=== PATIENT | female | born 1940 | race Caucasian/White ===

== ENCOUNTER → 2016-08-26 | Outpatient (CLI) | payer OTHER, MEDICARE ==
[~2016-08-26] MED LIST: ALBINS/ INH; ALBUAER2 INH; AMLO2.5T PO; AMPH1TAB58 PO; ASPI81TA21 PO; ATEN25TA PO; AZIT250T PO; CALCTAB23 PO; CETI10TA84 PO; CETI5TAB5 PO; CHOL1000 PO; FEXO1TAB49 PO; LISI40TA PO; LVNIS30 SQ; MULT-506 PO; OXYC-292 PO; OXYC-57 PO; RXC5 PO; TRAM-10 PO
== END | disposition home or self-care (01) ==
LOC: C.RDSM 10:14
PROVIDERS: ATTEND Physical Medicine & Rehabilitation Sports Medicine
DX: M17.12 Unilateral primary osteoarthritis, left knee (principal); J18.9 Pneumonia, unspecified organism; I77.810 Thoracic aortic ectasia

== ENCOUNTER → 2016-09-12 | Outpatient (CLI) | payer OTHER, MEDICARE ==
[~2016-09-12] MED LIST changes: -AZIT250T PO; -FEXO1TAB49 PO
--- NOTE | 2016-09-12 11:29 | DIAGNOSTIC IMAGING REPORT ---
CHEST CT WITHOUT CONTRAST CT DOSE: 239.66 mGy.cm HISTORY: Follow-up lung opacity. TECHNIQUE: Multiaxial CT images of the chest were performed without contrast. COMPARISON: Chest CTA 05/11/2016. FINDINGS: The central airways are patent. No pleural effusions. No pneumothorax. Small fat-containing right-sided Bochdalek hernia. Punctate calcified granuloma within the lingula. A few small tree-in-bud nodular opacities and 2 adjacent nodular densities within the left lower lobe have slightly progressed. Dominant nodular density measures 6 mm on image 196. These demonstrate a groundglass halo and favor mild infectious/inflammatory change in conjunction with the tree-in-bud nodules. A similar-appearing 2 mm nodular density within the right lower lobe on image 198. A few tiny subpleural nodular density of the right lung apex also remain stable. These are likely benign. No fractures within the visualized osseous structures. Stable 1 cm nodule within the left thyroid lobe. No mediastinal or hilar lymphadenopathy. A few small gallstones are present. The visualized liver, spleen, and adrenal glands are unremarkable. Postoperative changes suggesting prior Tessie fundoplication. Stable aneurysmal dilatation of the ascending thoracic aorta measuring up to 4.9 cm. IMPRESSION: 1. A few subcentimeter nodular densities within the left lower lobe have progressed including a few tree-in-bud nodular densities. These favor mild inflammatory/infectious change. However, an additional [address] follow-up is recommended to ensure resolution. 2. Stable aneurysmal dilatation of the ascending thoracic aorta which measures up to 4.9 cm. 3. A 1 cm left thyroid nodule. 4. Additional changes as described above. Electronically signed by: Rubin Ahn M.D. 09/12/2016 11:28 AM Dictated Date/Time: 09/12/2016 11:18 AM
== END | disposition home or self-care (01) ==
LOC: C.CTS 10:47
PROVIDERS: ATTEND Internal Medicine Pulmonary Disease
DX: R91.8 Other nonspecific abnormal finding of lung field (principal); I71.2 Thoracic aortic aneurysm, without rupture; E04.1 Nontoxic single thyroid nodule

== ENCOUNTER 2016-09-27 05:06 | Inpatient (IN) | payer OTHER, MEDICARE ==
[2016-09-02 15:47] VITALS: BMI 28.0
--- NOTE | 2016-09-02 16:08 | PAT Medication Instructions ---
Service Date Sep 02, 2016. Current Home Medication List Albuterol (Ventolin Hfa), 1-2 PUFFS INH Q4H PRN for Shortness of Breath Amlodipine (Norvasc), 2.5 MG PO QAM Amphetamine-Dextroamphetamine 5MG (Adderall 5MG), 7.5 MG PO QAM Aspirin Enteric Coated (Ecotrin Or Generic), 81 MG PO QAM Atenolol (Tenormin), 25 MG PO QAM Calcium Carbonate-Vitamin D (Calcium 600-D), 1 TABLET PO BID Cholecalciferol (Vitamin D3), Unknown Dose PO QAM Lisinopril (Zestril), 40 MG PO QAM Multivitamin (Multivitamin), 1 TABLET PO QAM Medication Instructions For Your Scheduled Surgery - Hold the following medications the morning of surgery: Cholecalciferol (Vitamin D3), Unknown Dose PO QAM Lisinopril (Zestril), 40 MG PO QAM Multivitamin (Multivitamin), 1 TABLET PO QAM Calcium Carbonate-Vitamin D (Calcium 600-D), 1 TABLET PO BID - Take the following medications the morning of surgery with a sip of water OTHERWISE NOTHING TO EAT OR DRINK AFTER MIDNIGHT: Atenolol (Tenormin), 25 MG PO QAM Albuterol (Ventolin Hfa), 1-2 PUFFS INH Q4H PRN for Shortness of Breath (may take if needed; BRING TO HOSPITAL) Nebulizer treatment (use if needed) Aspirin Enteric Coated (Ecotrin Or Generic), 81 MG PO QAM Amlodipine (Norvasc), 2.5 MG PO QAM - Take the following medications as scheduled the night before surgery: Calcium Carbonate-Vitamin D (Calcium 600-D), 1 TABLET PO BID Albuterol (Ventolin Hfa), 1-2 PUFFS INH Q4H PRN for Shortness of Breath Nebulizer treatment If you have any questions please call us at [phone] (Angelika Espinoza PA-C ) or [phone] or [phone]
[2016-09-02 16:30] LABS: BASO % 1.6 %; COMPLETE YES; EOS % 7.4 %; HEMATOCRIT 39.1 % (37-47); LYMPH % 37.5 %; LYMPH ABS # 2.29 K/uL (1.2-3.4); MEAN CELL VOLUME 87.9 fL (80-100); MEAN CORPUSCULAR HEMOGLOBIN 29.7 pg (25-34); MEAN CORPUSCULAR HGB CONC 33.8 g/dl (32-36); MEAN PLATELET VOLUME 9.6 fL (7.4-10.4); MONO % 7.9 %; NEUT % 45.6 %; PLATELET COUNT 275 K/uL (130-400); RED BLOOD COUNT 4.45 M/uL (4.2-5.4); WHITE BLOOD COUNT 6.11 K/uL (4.8-10.8)
[2016-09-02 16:37] LABS: PROTHROMBIN TIME (PATIENT) 10.9 SECONDS (9.0-12.0)
[2016-09-02 16:57] LABS: BUN/CREATININE RATIO 19.3 (10-20); CALCIUM 10.1 mg/dl (8.5-10.1)
[2016-09-02 17:00] LABS: ALB/GLOB RATIO 1.3 (0.9-2)
--- NOTE | 2016-09-05 17:39 | HISTORY & PHYSICAL EXAMINATION ---
DATE OF ADMISSION: 09/27/2016 CHIEF COMPLAINT: Left knee pain. HISTORY OF PRESENT ILLNESS: This 76-year-old female presents to the clinic for preoperative history and physical. The patient states that she has had significant left knee pain since January of 2015. The patient has failed numerous conservative efforts to treat the knee pain with the use of nonsteroidals, viscosupplementation as well as physical therapy. The patient states that she has also been using a knee brace that gives her some slight stability. The patient states that she had a right total knee arthroplasty performed by Dr. Giles in 2009 and states that she is doing excellent in regards to the right knee. The patient would like to proceed with a left total knee arthroplasty at this time. The patient denies any chest pain, shortness of breath, fever, chills, sweats, nausea, vomiting or diarrhea. PAST SURGICAL HISTORY: Tonsillectomy/adenoidectomy, tubal ligation, Tessie fundoplasty, right knee arthroscopy x2, right total knee arthroplasty, and bilateral cataract removal. PAST MEDICAL HISTORY: ADHD, asthma, hypertension, osteoporosis, COPD, obesity and seasonal allergies. FAMILY HISTORY: Father, lung cancer. Mother, breast cancer. ALLERGIES: THE PATIENT HAS MEDICATION ALLERGIES TO MECLIZINE AND SULFA DRUGS. CURRENT MEDICATIONS: Adderall 5 mg oral tablet 1 tab each morning, albuterol, ipratropium MDI 2 puffs inhaled every 4 hours as needed for wheezing, amlodipine 2.5 mg oral tablet 1 tab daily, aspirin 81 mg oral tablet 1 tab daily, atenolol 25 mg oral tablet 1 tab daily, ibuprofen 200 mg oral tablet 2-3 tabs every 6 hours as needed for pain relief, lisinopril 40 mg oral tablet 1 tab daily, multivitamin unknown dosage oral tablet 1 daily, vitamin D3 2000 international units 1 tab daily, Zyrtec 10 mg tablet 1 tab daily as needed for allergy relief. SOCIAL HISTORY: The patient denies a history of tobacco or illicit drug use, states that she consumes approximately 2 alcoholic beverages per week. PHYSICAL EXAMINATION: SKIN: The patient's skin is normal in appearance. No skin lesions or discharge. EYES: Pupils are equal and reactive to light and accommodation. Extraocular movements are intact. EARS: Canals are clear of cerumen. Tympanic membranes are intact bilaterally with no bulging or effusion. NOSE: Turbinates pink and boggy in appearance with no appreciable rhinorrhea. THROAT: Posterior oropharynx is clear without evidence of edema, erythema or exudate. CARDIOVASCULAR: The patient has a regular rate and rhythm with no murmurs or gallops appreciated. LUNGS: Auscultation of lung austin reveals clear breath sounds throughout with no wheezing, rales or rhonchi. ABDOMEN: Mildly obese, nondistended, nontender with normoactive bowel sounds throughout. EXTREMITIES: Left knee, patient is able to extend to 0 degrees and flex to 120 degrees. She has an obvious valgus deformity in the left knee joint. She has crepitation with active and passive range of motion and experiences lateral joint line tenderness upon palpation with the knee placed in a flexed position. The patient's left patella is nonmobile due to arthritic changes within the patellofemoral joint. Otherwise, there is no edema, erythema, ecchymosis, warmth or palpable bony deformity. No varus or valgus laxity. Negative AP drawer sign. Negative Lluvia test. The left calf is soft and supple, nontender to palpation. She experiences no overt knee pain with dorsi or plantar flexion of left foot actively or passively against resistance. The patient is neurovascularly intact in left lower extremity. Her peripheral pulses are palpable and her capillary refill is brisk. All other extremities are normal in appearance with appropriate range of motion and strength. NEUROLOGICAL: Cranial nerves II-XII are intact with no motor or sensory deficit. PSYCHOLOGICAL AND GENERAL: The patient is alert and oriented x3 with proper grooming and hygiene. DIAGNOSIS: Left knee osteoarthritis. PROCEDURE: Left total knee arthroplasty. RADIOGRAPHIC IMAGING: Images of left knee showed lateral joint space narrowing with sclerosis, bone on bone change within the lateral compartment and minimal lateral patellar arthrosis. PLAN: The patient is scheduled to undergo the procedure with Dr. Solo Giles at the [facility] on 09/27/2016. Risks and complications of the surgery such as infection, bleeding, pain, scarring, nerve and blood vessel damage, weakness, wound problems, stiffness, incomplete relief of symptoms, heart attack, stroke, , hardware failure, loosening, wear, fracture, blood clots and embolism were explained to the patient and she understands and agrees. Written consent to perform the procedure was obtained. We will also obtain a preoperative CBC with diff, CMP, PT, INR, PTT, blood type and screen, EKG, chest x-ray and medical clearance from the patient's primary care provider, Dr. Perez. The patient states that she has a walker at home that she will bring with her on the day of surgery. She is advised that she will be provided with a prescription for Lovenox to use postoperatively for DVT prophylaxis for a total of 4 weeks twice daily. She will also use PRINCESS stockings and foot pumps to prevent blood clots and embolism. The patient will be provided with a prescription for PT, OT to receive 3 times weekly for 6 weeks postoperatively. Due to the use of Lovenox, she will not need biweekly PT/INR checks. The patient states she will most likely proceed to [facility] for postoperative rehab for 2 weeks and then do outpatient physical therapy for an additional 4-6 weeks. The patient verbalized understanding of all information provided at today's visit, thanked us for the care she received at our clinic and states that if she has any other questions or concerns that should arise prior to her scheduled surgical date, she will contact the clinic accordingly.
[~2016-09-27] VITALS: Ht 154.9 cm; Wt 65.5 kg
[2016-09-27] VITALS (11 sets, daily range): BP systolic 100–135; BP diastolic 66–89; PULSE 57–88; TEMP 36.5–36.8; O2SAT 92–99; Ht 154.9 cm; Wt 65.5 kg
[~2016-09-27 05:06] MED LIST changes: -ALBINS/ INH; -CETI10TA84 PO; -CETI5TAB5 PO; -LVNIS30 SQ; -OXYC-292 PO; -OXYC-57 PO; -RXC5 PO; -TRAM-10 PO
[2016-09-27] MEDS ORDERED: ALBINS/ INH (05:48)
[2016-09-27] MEDS ORDERED: CETI5TAB5 PO (05:49)
[2016-09-27] MEDS ORDERED: CETI10TA84 PO (05:50)
[2016-09-27] MEDS ORDERED: CeleBREX 200 MG CAP PO SCH (06:00)
[2016-09-27] MEDS ORDERED: BUPIVACAINE LIPOSOME 266 MG, BUPIVACAINE/EPINEPHRINE INJ 50 ML, SODIUM CHLORIDE 0.9% PF... INFIL SCH ×3 (06:00)
[2016-09-27] MEDS ORDERED: ACETAMINOPHEN 500 MG TAB PO SCH (06:00)
[2016-09-27] MEDS ORDERED: LACTATED RINGER'S 1000ML 1,000 ML IV SCH ×2 (06:00→14:23)
[2016-09-27] MEDS ORDERED: DEXAMETHASONE 4 MG TAB PO SCH (06:00)
[2016-09-27] MEDS ORDERED: TRAMADOL HCL 50 MG TAB PO SCH (06:00)
[2016-09-27] MEDS ORDERED: OXYCODONE HCL 10 MG TABCR (OXYCONTIN) PO SCH (06:00)
[2016-09-27] MEDS ORDERED: CEFAZOLIN 2000 MG/60 ML D5W 60 ML IV SCH (06:00)
[2016-09-27] MEDS ORDERED: CLONIDINE HCL 0.1 MG/24 HR TRANSDERM SYS TD SCH (06:00)
[2016-09-27] MEDS ORDERED: LACTATED RINGER'S 1000ML IV SCH (06:00)
[2016-09-27] MEDS ORDERED: GABAPENTIN 300 MG CAP PO SCH (06:00)
[2016-09-27] MEDS ORDERED: BUPIVACAINE 0.5 % 5 MG/1 ML PF 10ML VIAL ONE (06:13)
[2016-09-27] MEDS ORDERED: BUPIVACAINE 0.25% 30 ML VIAL ONE (06:14)
--- NOTE | 2016-09-27 06:29 | History & Physical Bridge Note ---
H&P Re-Evaluation Bridge Note: I have examined the patient, reviewed the History & Physical and in the interval since the performance of the History & Physical I have noted the following changes of clinical significance: No changes noted
[2016-09-27] MEDS: TRANEXAMIC ACID INJ 1,000 MG in SODIUM CHLORIDE 0.9% 100ML 100 ML IV SCH ×2 (06:30→11:16)
[2016-09-27] MEDS ORDERED: SODIUM CHL BACTERIOSTATIC 0.9% INJ 30 ML VIAL ONE (06:36)
[2016-09-27] MEDS ORDERED: BACITRACIN 50000 UNIT VIAL ONE ×2 (06:36→07:05)
[2016-09-27] MEDS ORDERED: BUPIVACAINE/EPINEPHRINE 0.25% 1:200,000 30 ML VIAL ONE (06:36)
[2016-09-27] MEDS ORDERED: BUPIVACAINE LIPOSOME 1/3% 266 MG/20 ML VIAL INFIL ONE (06:37)
[2016-09-27] MEDS ORDERED: FENTANYL CITRATE INJ 50 MCG/1 ML 2 ML VIAL ONE (06:45)
[2016-09-27] MEDS ORDERED: KETAMINE HCL INJ 50 MG/ML 10 ML VIAL ONE (06:45)
[2016-09-27] MEDS ORDERED: MIDAZOLAM HCL 1 MG/ML 2ML VIAL ONE (06:48)
[2016-09-27] MEDS ORDERED: SODIUM CHLORIDE 0.9% PF 50 ML VIAL ONE (07:10)
[2016-09-27] MEDS ORDERED: EpHEDrine SULFATE INJ 50 MG/ML AMP IV PRN (08:15)
[2016-09-27] MEDS ORDERED: ONDANSETRON INJ 2 MG/ML 2 ML VIAL IV PRN ×2 (08:15→14:30)
[2016-09-27] MEDS ORDERED: FENTANYL CITRATE INJ 50 MCG/1 ML 2 ML VIAL IV PRN (08:15)
[2016-09-27] MEDS ORDERED: ATROPINE SULFATE 0.1 MG/ML 5ML SYR IV PRN (08:15)
[2016-09-27] MEDS ORDERED: PROPOFOL IV EMULSION 10 MG/ML 20 ML VIAL IV ONE (08:55)
[2016-09-27] MEDS ORDERED: EpHEDrine SULFATE 50MG/5ML SYR ONE (08:55)
[2016-09-27] MEDS ORDERED: LIDOCAINE HCL 2% 2 ML VIAL (20MG/ML) ONE (08:55)
--- NOTE | 2016-09-27 09:56 | [facility] Post Operative Brief Note ---
Immediate Operative Summary Operative Date Sep 27, 2016. Pre-Operative Diagnosis Left Knee Osteoarthritis Post-Operative Diagnosis Left Knee Osteoarthritis Procedure(s) Performed Left Total Knee Arthroplasty Surgeon Dr. Solo Giles Direct Mail Manager Surgeon(s) elieser Taylor ms3 Estimated Blood Loss 20ML Findings lateral and patellar OA Specimens A. Left Knee Bone and Tissue Drains 0 Anesthesia spinal with sedation Complication(s) None Disposition Recovery Room / PACU
--- NOTE | 2016-09-27 09:56 | Medical Student: [facility] ---
Immediate Operative Summary Operative Date Sep 27, 2016. Pre-Operative Diagnosis Left knee osteoarthritis Post-Operative Diagnosis Left knee osteoarthritis Procedure(s) Performed Left total knee arthroplasty Surgeon Dr. Giles Stoneworking Sander Surgeon(s) Dr. Teresa Estimated Blood Loss 20cc Findings Osteoarthritic changes of the knee Specimens None Complication(s) None Disposition Recovery Room / PACU
[2016-09-27] MEDS ORDERED: HYDROCODONE/ACETAMOPHEN 5/325MG TAB PO PRN ×2 (10:00→14:30)
--- NOTE | 2016-09-27 10:06 | [facility] Post Operative Brief Note ---
Immediate Operative Summary Operative Date Sep 27, 2016. Pre-Operative Diagnosis Left Knee Osteoarthritis Post-Operative Diagnosis Left Knee Osteoarthritis Procedure(s) Performed Left Total Knee Arthroplasty Surgeon Dr. Solo Giles Marine Rigger Surgeon(s) elieser Taylor ms3 Estimated Blood Loss 20ML Specimens A. Left Knee Bone and Tissue Complication(s) None Disposition PCU
--- NOTE | 2016-09-27 10:45 | Anesthesiology Progress Note ---
Anesthesia Post Op Note Date & Time Sep 27, 2016 at 10:45 Vital Signs Pain Intensity: 0 Vital Signs Past 12 Hours Date Time Temp Pulse Resp B/P Pulse Ox O2 Delivery O2 Flow Rate FiO2 09/27/16 10:30 58 15 125/77 96 Nasal Cannula 2 09/27/16 10:15 36.1 59 16 126/77 98 Nasal Cannula 2 09/27/16 10:05 72 21 133/80 100 Nasal Cannula 2 09/27/16 09:55 62 23 114/79 99 Nasal Cannula 2 09/27/16 09:45 36.7 69 16 116/80 100 Mask 10 09/27/16 06:00 99 Room Air 09/27/16 05:52 36.6 67 16 135/89 Notes Mental Status: alert / awake / arousable, participated in evaluation Pt Amnestic to Procedure: Yes Nausea / Vomiting: adequately controlled Pain: adequately controlled Airway Patency, RR, SpO2: stable & adequate BP & HR: stable & adequate Hydration State: stable & adequate Neuraxial Anesthesia: was administered, sensory block is resolving Anesthetic Complications: no major complications apparent
--- NOTE | 2016-09-27 10:50 | OPERATIVE REPORT ---
DATE OF OPERATION: 09/27/2016 PREOPERATIVE DIAGNOSIS: Left knee osteoarthritis. POSTOPERATIVE DIAGNOSIS: Same. PROCEDURE: Cemented left total knee arthroplasty. SURGEON: Dr. Giles. REFRIGERATION INSTALLER: Carlton Teresa. No resident or PA available. SECOND REFRIGERATION INSTALLER: Royer, third year medical student. ANESTHESIA: Spinal with sedation and peripheral nerve block. INDICATION FOR PROCEDURE: The patient is a 76-year-old female with longstanding left lateral knee pain, valgus deformity, and lateral compartment arthritis, refractory to nonsurgical methods of management. She has elected to proceed with operative intervention. She had successful contralateral knee replacement 7 years ago. Treatment options, risks and benefits were discussed. PROCEDURE IN DETAIL: Informed consent was obtained. The patient identified as Sarah Sargent. She identified the operative site as the left knee, I marked it with my initials. A preop surgical timeout was performed. A preop dose of IV antibiotics was given. She was taken to the operating room, positioned supine on the operating room table. No Ayala was inserted. A tourniquet was applied to the left thigh. A padded bump was used for flexing the knee. The entire left lower extremity was prepped and draped in usual sterile fashion. She had a 2 mm benign-appearing split in the skin at the distal extent of her toe with a scant amount of old blood. This was scrubbed with chlorhexidine and found not to have any significant depth or evidence of infection. The exam under anesthesia showed full extension and flexion to 140 degrees. She had intact stability and full extension, trace LCL laxity in mid position. The left leg was prepped and draped in usual sterile fashion. DVT prophylaxis intraoperatively with foot pumps, postoperatively with early mobility and Lovenox. She received a preop dose of IV antibiotics. She was positioned supine on the OR table. She had a preoperative medical clearance. Bony prominences were inspected and padded. The limb was exsanguinated with the Esmarch, tourniquet inflated to 225 mmHg. A midline incision attempting to match the length of the contralateral side was made, approximately 20 cm in length. The skin was incised followed by a medial parapatellar arthrotomy and minimal medial release. Release of the soft tissue reflection in the lateral gutter, removal of peripheral osteophytes, and resection of anterior soft tissue from the anterior aspect of the distal femur. There were grade 3 and 4 changes on the patella with marginal osteophytes. The medial side of the knee looked fairly normal except for some degeneration in the medial meniscus. The trochlea looked well. There were [id number] grade 4 changes weightbearing area lateral femoral condyle with a deficient lateral meniscus. The cruciates and menisci were excised, and the tibia was subluxated. A maritime pilot hole was drilled into the proximal femur just in front of the lateral tibial spine. The alignment marleny was inserted and the 0-degree cutting block was applied and aligned to take 6 mm off the medial side, corresponding to 8 on the lateral side which matched our preoperative templating. The extramedullary alignment marleny was utilized, and this showed good slope and bisection of the ankle joint and intersection with the second ray. The alignment was good and the cut was made and sized to a 2.5. A maritime pilot hole was drilled into the distal femur, just slightly more medial than is typical, based upon preoperative templating. I had measured her to a 7-degree cut, but because of some valgus metaphyseal bow, I decreased this to 5 degrees. The guide was set to resect 12 mm off the distal femur. The guide was oriented, pinned into place, double checked, and the cut was made. The patient had a rectangular extension gap, 10 mm in thickness. Luning's line and the transepicondylar axis were marked out. The distal femoral sizing block was applied, sized to a 2.5, and the appropriate external rotation drill holes were made which matched the epicondylar axis. The size 2.5 anterior down cutting block was applied and the cuts were made. The patient had a rectangular flexion gap. There were no osteophytes or loose bodies in the back of the knee. The box cutting guide was applied, lateralized, and the box was cut. Prior to that, the flexion gap was assessed with a 10 block, it fit appropriately medially with about 2 mm of lateral laxity at 90. Given the overall balance of the knee and this minimal laxity, I accepted this as within tolerance and proceeded. The tibia was exposed. The 2.5 tray was aligned, pinned into place. The keel was drilled and punched, and the trial polyethylene was inserted which showed excellent stability throughout and a trace bit of laxity laterally at 90 degrees flexion. The knee was neutrally aligned and fully extended. The patella was measured to be 20 mm in thickness. The guide was set to preserve 13 mm of bone. The cut was made and the residual patellar thickness was 12. A 35 mm oval dome patella was selected, appropriately aligned, and the drill holes for the lugs were made. Patellar tracking was off at this point with the tourniquet up. The trial components were removed from the knee. The back of the knee was injected with Exparel. The canals were plugged. The bony surfaces were meticulously prepared. Throughout the procedure, irrigation was performed to keep the soft tissues moist. Two bags of Simplex P cement were mixed, and while in the doughy state, the femur, tibia and patella were cemented in place with a trial spacer. Once the cement had hardened, the tourniquet was let down after 83 minutes of inflation. There was minimal bleeding. Hemostasis was achieved with electrocautery, and the patient received a preop dose of TXA and will receive a postoperative dose as well. Composite patellar thickness was 20.5 mm. [place] assisted flexion with the extensor mechanism closed was 125 degrees, perhaps even 130. Stability was again assessed and found to be the same as prior. I did not think that a 12.5 block would fit in extension, would likely cause her to have a slight flexion contracture and overall make the knee excessively tight. Once the tourniquet was down, the patellar tracking was fine with the no hands technique. The liftoff and pull out test was absent. The back of the knee was inspected for cement, irrigated, and the final polyethylene was inserted. Irrigation was performed followed by the remainder of the Exparel. The extensor mechanism was closed below the equator of the patella with running and interrupted #1 Vicryl and above the equator with interrupted #2 FiberWire. The skin was closed in layers with 0 and 2-0 Vicryl and sarah on the skin and a full length Ronen wrap with a soft sterile dressing, Xeroform, 4 x 4's, ABD. The patient was awakened from anesthesia without difficulty, taken to the recovery room in stable condition. There were no complications. The resected bone was sent for specimen. Counts were correct at the end of case. Blood loss was approximately 20 mL. The patient will be rehabilitated according to the total knee rehab protocol and she will hopefully be able to get to [facility]. Components inserted were the [employer] rotating platform knee, a size 2.5 left femur, 2.5 mobile bearing keeled tibial tray, a 10 mm thick rotating platform polyethylene insert, and a 35 mm 3-peg oval dome patella. I attest to the content of the Intraoperative Record and any orders documented therein. Any exceptio ns are noted below.
--- NOTE | 2016-09-27 11:08 | DIAGNOSTIC IMAGING REPORT ---
LEFT KNEE 2 VIEWS History: Left total knee arthroplasty. Degenerative arthritis. Postop. FINDINGS: The patient is status post a left total knee arthroplasty. The hardware is intact. No fracture or dislocation. Skin sarah are in place. IMPRESSION: Left total knee arthroplasty. No evidence for hardware complication. Electronically signed by: Rubin Ahn M.D. 09/27/2016 11:06 AM Dictated Date/Time: 09/27/2016 11:06 AM
[2016-09-27] MEDS: CHECK CLONIDINE PATCH PLACEMENT SCH ×4 (11:15→23:42)
[2016-09-27] MEDS: SODIUM CHLORIDE 0.9% 1000ML 1,000 ML IV SCH ×2 (11:27→20:19)
[2016-09-27] MEDS: ONDANSETRON INJ 2 MG/ML 2 ML VIAL IV PRN ×2 (11:27→17:40)
[2016-09-27] MEDS ORDERED: ACETAMINOPHEN 500 MG TAB PO PRN (13:15)
--- NOTE | 2016-09-27 13:44 | ORTHOPEDICS PROGRESS NOTE ---
DATE: 09/27/2016 DATE: 09/27/2016. SUBJECTIVE: Postop check. Resting comfortably in bed eating. No problems reported. Pain well controlled. Afebrile. Vital signs are stable. X-ray showed good positioning without evidence of complication. No fracture. A 1+ dorsalis pedis, 5/5 ankle and toe plantarflexion, dorsiflexion. Sensation normal. Dressing clean and dry. PROCEDURE: Left total knee replacement. PLAN: Continue routine postoperative orthopedic care. I discussed with her my findings related to the surgery. She will use the knee immobilizer for about 24 hours when she is up and about. We discussed her postoperative care. She will be started on Lovenox in the morning.
[2016-09-27] MEDS ORDERED: MoRPHine SULFATE 2 MG/ML CARP IV PRN (14:30)
[2016-09-27] MEDS ORDERED: ONDANSETRON INJ 2 MG/ML 2 ML VIAL IV ONE (14:45)
[2016-09-27] MEDS ORDERED: NURSING VERBAL MED ORDER ONE (14:45)
[2016-09-27] MEDS: OXYCODONE HCL IR 5 MG TAB (IMMEDIATE RELEASE) PO PRN (15:22)
[2016-09-27] MEDS ORDERED: TRANEXAMIC ACID INJ 1,000 MG in SODIUM CHLORIDE 0.9% 100ML 100 ML IV SCH (16:00)
[2016-09-27] MEDS: CEFAZOLIN IV 1,000 MG in DEXTROSE 5% 50ML 50 ML IV SCH ×2 (16:03→23:42)
[2016-09-27] MEDS: MoRPHine SULFATE 2 MG/ML CARP IV PRN (16:03)
[2016-09-27] MEDS: KETOROLAC TROMETHAMINE 15 MG/ML VIAL IV. PRN (17:42)
--- NOTE | 2016-09-27 17:58 | Medical Consult ---
Consultation Date of Consultation: Sep 27, 2016. Attending Physician: Solo Giles M.D. Reason for Consultation: post-op medical management History of Present Illness Ms. Sargent is a 76 yo F who is admitted post left-knee arthroplasty. 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 She denies ever being diagnosed with diabetes. She was previously "borderline" diabetic with A1C of 6.1 and started exercising and modifying her diet and her last 2 A1Cs have been 5.6. She follows with Dr. Perez (PCP). She is currently feeling nauseated and c/o left knee pain. She otherwise has no chest pain, no sob, no abd pain, no urinary symptoms. Past Medical/Surgical History PMHx HTN, COPD, asthma, thoracic aortic aneurysm, seasonal allergies, osteoarthritis b/l knees PSH: - R TKA, tonsillectomy, tubal ligation, cataracts b/l, R meniscal repair, Tessie procedure Family History Cancer FHx: possibly heart disease - Alzheimer's disease in both sets of grandparents Social Hx: - h/o heavy smoking since teenager, quit in 1981 - weekly drinking - lives by herself with a cat and 2 snakes Allergies: Sulfa ( rash) Meclizine ("loopy") Social History Smoking Status: Former Smoker Drug Use: none Marital Status: Housing Status: lives with family Occupation Status: retired Allergies Coded Allergies: Sulfa Antibiotics (Verified Allergy, Mild, RASH, 09/27/16) Meclizine (Verified Adverse Reaction, Mild, DROWSY, 09/27/16) Home Medications Reported Home Medications Medications Dose Route/Sig Max Daily Dose Days Date Category Zyrtec (Cetirizine HCl) 10 Mg Tab 10 Mg PO DAILY 09/27/16 Reported Proventil 0.083% 2.5MG/3ML (Albuterol Sulf) 2.5 Mg/3 Ml Nebu 2.5 Mg INH QID 09/27/16 Reported Vitamin D3 (Cholecalciferol) Unknown Strength Tab Unknown Dose PO QAM 90 05/11/16 Reported Adderall 5MG (Amphetamine-Dextroamphetamine 5MG) 1 Tab Tab 7.5 Mg PO QAM 05/11/16 Reported Ventolin Hfa (Albuterol) Aers 1-2 Puffs INH Q4H PRN 04/15/14 Reported Calcium 600-D (Calcium Carbonate-Vitamin D) 1 Tab Tab 1 Tablet PO DAILY 02/25/13 Reported Ecotrin Or Generic (Aspirin) 81 Mg Tab 81 Mg PO QAM 09/06/12 Reported Norvasc (Amlodipine Besylate) 2.5 Mg Tab 2.5 Mg PO QAM 09/06/12 Reported Tenormin (Atenolol) 25 Mg Tab 25 Mg PO QAM 09/06/12 Reported Multivitamin (Multivitamins) Tab 1 Tablet PO QAM 07/29/09 Reported Zestril (Lisinopril) 40 Mg Tab 40 Mg PO QAM 07/29/09 Reported Current Inpatient Medications Current Inpatient Medications Medications (Trade) Dose Ordered Sig/Dominique Route Start Time Stop Time Status Last Admin Dose Admin Cefazolin Sodium (Ancef 2000mg/60 ml D5W) 60 ml @ 100 mls/hr PREOP IV 09/27/16 06:00 09/27/16 18:00 09/27/16 07:09 100 MLS/HR Acetaminophen (Tylenol Tab) 1,000 mg PREOP PO 09/27/16 06:00 09/27/16 18:00 09/27/16 06:33 1,000 MG Dexamethasone 8 mg 8 mg PREOP PO 09/27/16 06:00 09/27/16 18:00 09/27/16 06:32 8 MG Bupivacaine Liposome/ Bupivacaine HCl/ Epinephrine Bitart/Sodium Chloride/Syringe (Exparel/ BUPIVACAINE/ EPINEPHRINE 0.25% Inj/Sodium Chloride 0.9% Pf Inj/Syringe) 100 ml @ 0 mls/hr 06 INFIL 09/27/16 06:00 09/27/16 18:00 09/27/16 08:28 100 MLS/HR Gabapentin (Neurontin Cap) 300 mg PREOP PO 09/27/16 06:00 09/27/16 18:00 09/27/16 06:33 300 MG Clonidine HCl (Ittprlws-Xqs-1 0.1mg/24hr Patch) 1 patch PREOP TD 09/27/16 06:00 09/27/16 18:00 09/27/16 06:34 1 PATCH Miscellaneous 1 ea 1 ea Q72H N/A 09/30/16 06:00 09/30/16 06:01 Tranexamic Acid/ Sodium Chloride (Cyklokapron Inj/ Nss 100ml) 110 ml @ 660 mls/hr TODAY@06,0630 IV 09/27/16 06:00 09/27/16 18:00 09/27/16 06:30 660 MLS/HR Tramadol HCl (Ultram Tab) 50 mg PREOP PO 09/27/16 06:00 09/27/16 18:00 09/27/16 06:33 50 MG Oxycodone HCl (Oxycontin Tab) 10 mg PREOP PO 09/27/16 06:00 09/27/16 18:00 09/27/16 06:35 10 MG Miscellaneous Information 1 ea 1 ea QS N/A 09/27/16 00:00 10/27/16 00:00 09/27/16 16:04 1 EA Sodium Chloride 1,000 ml @ 100 mls/hr Q10H IV 09/27/16 09:52 09/28/16 09:51 09/27/16 11:27 100 MLS/HR Cefazolin Sodium/ Dextrose (Ancef Iv/D5 50ml) 55 ml @ 100 mls/hr Q8H IV 09/27/16 16:00 09/28/16 00:32 09/27/16 16:03 100 MLS/HR Morphine Sulfate (MoRPHine SULFATE INJ) 1 mg Q4 PRN IV 09/27/16 10:00 10/11/16 09:59 09/27/16 16:03 1 MG Senna (Senokot Tab) 17.2 mg HS PO 09/27/16 21:00 10/27/16 20:59 Docusate Sodium (coLACE CAP) 100 mg BID PO 09/27/16 21:00 10/27/16 20:59 Ondansetron HCl (Zofran Inj) 4 mg Q6H PRN IV 09/27/16 10:00 10/27/16 09:59 09/27/16 17:40 4 MG Pantoprazole Sodium (Protonix Tab) 40 mg QAM PO 09/28/16 09:00 10/28/16 08:59 Tramadol HCl (Ultram Tab) 1 tablet for pain rating... Q4H PRN PO 09/27/16 10:00 10/27/16 09:59 Dexamethasone (Decadron Tab) 8 mg TODAY@0730 PO 09/28/16 07:30 09/28/16 07:31 Ketorolac Tromethamine (Toradol Inj) 15 mg Q6H PRN IV. 09/27/16 10:00 09/28/16 09:59 09/27/16 17:42 15 MG Enoxaparin Sodium (Lovenox Inj) 30 mg Q12H SQ 09/28/16 08:00 10/28/16 07:59 Oxycodone HCl (Roxicodone Immediate Rel Tab) @ Q4 PRN PO 09/27/16 13:15 10/11/16 13:14 09/27/16 15:22 10 MG Acetaminophen (Tylenol Tab) 1,000 mg Q8 PRN PO 09/27/16 13:15 10/27/16 13:14 Review of Systems ROS as per HPI. Rest of ROS negative. Physical Exam Date Time Temp Pulse Resp B/P Pulse Ox O2 Delivery O2 Flow Rate FiO2 09/27/16 14:58 36.5 71 18 116/78 99 Nasal Cannula 2.0 09/27/16 14:06 76 14 114/76 96 Nasal Cannula 2.0 09/27/16 13:10 36.8 62 119/77 94 Nasal Cannula 2.0 09/27/16 12:10 67 16 122/79 94 Nasal Cannula 2.0 09/27/16 11:40 57 16 123/80 99 Nasal Cannula 2.0 09/27/16 11:10 96 Nasal Cannula 2.0 09/27/16 11:10 Nasal Cannula 2.0 09/27/16 11:10 36.5 66 16 119/74 96 Nasal Cannula 2.0 66 09/27/16 10:45 61 16 132/75 95 Nasal Cannula 2 09/27/16 10:30 58 15 125/77 96 Nasal Cannula 2 09/27/16 10:15 36.1 59 16 126/77 98 Nasal Cannula 2 09/27/16 10:05 72 21 133/80 100 Nasal Cannula 2 09/27/16 09:55 62 23 114/79 99 Nasal Cannula 2 09/27/16 09:45 36.7 69 16 116/80 100 Mask 10 09/27/16 06:00 99 Room Air 09/27/16 05:52 36.6 67 16 135/89 NAD, AOx3, coherent and fluent speech EOMI, PERRL, anicteric sclerae S1 S2 RRR, no murmur appreciated CTAB no w/r/r Abd soft, nt/nd +BS no CVA tend, no organomegaly palpated No LE edema L knee with immobilizer CN 2-12 grossly intact without facial drooping or focal deficits Laboratory Results Last 24 Hours Test 09/27/16 05:36 09/27/16 10:23 09/27/16 12:16 09/27/16 16:53 Bedside Glucose 87 mg/dl 137 mg/dl 130 mg/dl 128 mg/dl Assessment & Plan 1. L knee osteoarthritis - POD #0 s/p arthroplasty - pain regimen per ortho - bowel regimen 2. Nausea - likely from pain meds - zofran as needed 3. HTN - well-controlled right now despite not taking lisinopril this morning - cont amlodipine, atenolol, lisinopril 4. COPD - prn albuterol - stable at the moment 5. DVT ppx will be deferred to ortho 6. Hyperglycemia - non-diabetic - likely has glucose intolerance - with steroid dysglycemia - will monitor glucose only daily Thank you for allowing us to participate in the care of Ms. Sargent. Please call us with any questions.
[2016-09-27] MEDS ORDERED: ALBUTEROL HFA 8 GM INHALER INH PRN (18:00)
[2016-09-27] MEDS ORDERED: ALBUTEROL 0.083% NEBU SOLN 3 ML VIAL INH ONE (21:00)
[2016-09-27] MEDS: DOCUSATE SODIUM 100 MG CAP PO SCH (21:36)
[2016-09-27] MEDS: SENNA 8.6 MG TAB PO SCH (21:36)
[2016-09-27] MEDS ORDERED: PROMETHAZINE HCL INJ 25 MG in SODIUM CHLORIDE 0.9% 50ML 50 ML IV STA (21:46)
[2016-09-28] VITALS (8 sets, daily range): BP systolic 97–113; BP diastolic 65–78; PULSE 59–85; TEMP 36.6–37.3; O2SAT 90–96
[2016-09-28] MEDS ORDERED: PROMETHAZINE HCL INJ 12.5 MG in SODIUM CHLORIDE 0.9% 50ML 50 ML IV PRN (04:00)
[2016-09-28] MEDS: ONDANSETRON INJ 2 MG/ML 2 ML VIAL IV PRN ×2 (05:23→22:43)
[2016-09-28] MEDS: KETOROLAC TROMETHAMINE 15 MG/ML VIAL IV. PRN (05:23)
[2016-09-28] MEDS: OXYCODONE HCL IR 5 MG TAB (IMMEDIATE RELEASE) PO PRN ×4 (05:24→22:54)
[2016-09-28] MEDS: SODIUM CHLORIDE 0.9% 1000ML 1,000 ML IV SCH (05:50)
[2016-09-28] MEDS: ALBUTEROL HFA 8 GM INHALER INH PRN ×2 (05:51→10:49)
[2016-09-28 05:54] LABS: BASO % 0.3 %; BASO ABS # 0.03 K/uL (0-0.2); COMPLETE YES; EOS % 0.5 %; HEMATOCRIT 33.5 % (37-47); IG% 0.2 %; LYMPH % 17.4 %; LYMPH ABS # 1.61 K/uL (1.2-3.4); MEAN CORPUSCULAR HEMOGLOBIN 29.4 pg (25-34); MEAN CORPUSCULAR HGB CONC 33.7 g/dl (32-36); MEAN PLATELET VOLUME 9.3 fL (7.4-10.4); MONO % 11.4 %; NEUT % 70.2 %; PLATELET COUNT 226 K/uL (130-400); RED BLOOD COUNT 3.85 M/uL (4.2-5.4); WHITE BLOOD COUNT 9.24 K/uL (4.8-10.8)
[2016-09-28 06:24] LABS: BUN/CREATININE RATIO 15.5 (10-20); CALCIUM 8.3 mg/dl (8.5-10.1); CREATININE 1.2 mg/dl (0.60-1.20); POTASSIUM 4.1 mmol/L (3.5-5.1)
[2016-09-28 06:26] LABS: ALB/GLOB RATIO 1.1 (0.9-2)
[2016-09-28] MEDS ORDERED: DEXAMETHASONE 4 MG TAB PO SCH (07:30)
[2016-09-28] MEDS: ENOXAPARIN 30 MG/0.3 ML SYR SQ SCH ×2 (07:37→19:59)
[2016-09-28] MEDS: CHECK CLONIDINE PATCH PLACEMENT SCH ×3 (07:38→23:50)
[2016-09-28] MEDS: AMLODIPINE BESYLATE 5 MG TAB PO SCH (08:40)
[2016-09-28] MEDS: PANTOprazole SOD 40 MG TAB PO SCH (08:40)
[2016-09-28] MEDS: LISINOPRIL 40 MG TAB PO SCH (08:40)
[2016-09-28] MEDS: CETIRIZINE HCL 10 MG TAB PO SCH (08:40)
[2016-09-28] MEDS: AMPHETAMINE ASP/SULF/DEXTRAMPH 5 MG TAB PO SCH (08:41)
[2016-09-28] MEDS: ASPIRIN 81 MG ECTAB PO SCH (08:41)
[2016-09-28] MEDS: DOCUSATE SODIUM 100 MG CAP PO SCH ×2 (08:47→22:53)
--- NOTE | 2016-09-28 09:14 | Progress Note ---
Orthopedic SOAP Note Subjective Date of Service: Sep 28, 2016. 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 Medical Problems: (1) Fever Status: Acute (2) Pneumonia Status: Acute Objective calves soft nontender, N/V intact, capillary refill less than 2 sec., dressing C /D/I, A&O x3, toes mobile resting comfortably in bed eating breakfast Date Time Temp Pulse Resp B/P Pulse Ox O2 Delivery O2 Flow Rate FiO2 09/28/16 07:44 36.7 80 18 109/69 90 Room Air 09/28/16 07:25 Room Air 09/28/16 02:52 36.6 68 15 97/67 90 Room Air 09/27/16 23:15 Room Air 09/27/16 23:07 36.5 88 18 105/70 92 Room Air 09/27/16 21:50 83 18 93 Room Air 09/27/16 18:41 36.6 83 16 100/66 92 Room Air 09/27/16 14:58 36.5 71 18 116/78 99 Nasal Cannula 2.0 09/27/16 14:06 76 14 114/76 96 Nasal Cannula 2.0 09/27/16 13:10 36.8 62 119/77 94 Nasal Cannula 2.0 09/27/16 12:10 67 16 122/79 94 Nasal Cannula 2.0 09/27/16 11:40 57 16 123/80 99 Nasal Cannula 2.0 09/27/16 11:10 96 Nasal Cannula 2.0 09/27/16 11:10 Nasal Cannula 2.0 09/27/16 11:10 36.5 66 16 119/74 96 Nasal Cannula 2.0 66 09/27/16 10:45 61 16 132/75 95 Nasal Cannula 2 09/27/16 10:30 58 15 125/77 96 Nasal Cannula 2 09/27/16 10:15 36.1 59 16 126/77 98 Nasal Cannula 2 09/27/16 10:05 72 21 133/80 100 Nasal Cannula 2 09/27/16 09:55 62 23 114/79 99 Nasal Cannula 2 09/27/16 09:45 36.7 69 16 116/80 100 Mask 10 Laboratory Results 24 Hours: Test 09/28/16 04:44 09/28/16 05:25 White Blood Count 9.24 K/uL Red Blood Count 3.85 M/uL Hemoglobin 11.3 g/dL Hematocrit 33.5 % Mean Corpuscular Volume 87.0 fL Mean Corpuscular Hemoglobin 29.4 pg Mean Corpuscular Hemoglobin Concent 33.7 g/dl Platelet Count 226 K/uL Mean Platelet Volume 9.3 fL Neutrophils (%) (Auto) 70.2 % Lymphocytes (%) (Auto) 17.4 % Monocytes (%) (Auto) 11.4 % Eosinophils (%) (Auto) 0.5 % Basophils (%) (Auto) 0.3 % Neutrophils # (Auto) 6.48 K/uL Lymphocytes # (Auto) 1.61 K/uL Monocytes # (Auto) 1.05 K/uL Eosinophils # (Auto) 0.05 K/uL Basophils # (Auto) 0.03 K/uL Assessment post op day 1 s/p Left TKA Plan continue post op care PT/OT daily dressing to be changed tomorrow morning pain control with prescribed medications DVT prophylaxis with Lovenox 30mg q 12 hours x 4 weeks WBAT Left L.E and walker assist resume diet ice/elevate Requesting [facility] Will discuss findings further with Dr. Giles
[2016-09-28] MEDS ORDERED: LVNIS30 SQ (09:16)
[2016-09-28] MEDS ORDERED: OXYC-57 PO (09:16)
--- NOTE | 2016-09-28 09:21 | Discharge Instructions ---
Discharge Instructions Admission Reason for Admission: Left Knee Osteoarthritis Discharge Discharge Diagnosis / Problem: s/p Left total knee arthroplasty Discharge Goals Goal(s): Decrease discomfort, Improve function, Increase independence Activity Recommendations Activity Level: Up Ad Cate, Ambulates in room, Self Positioning, OOB In Chair, Assistance Required Therapies: Physical Therapy, Weight Bearing Status (as tolerated with walker assist ), Occupational Therapy Weightbearing Status: Left weightbearing (as tolerated) Lifting Limitations: none Shower/Bathe: keep incision dry . Additional Information Patient informed of condition: Yes Advance Directives: Yes DNR: No Level of Care: Acute Rehab Communicable Disease: No Prognosis: Stable Ayala Catheter: No Instructions / Follow-Up Instructions / Follow-Up New Medicine: * You will likely be taking one or more of these medications: 1. Lovenox - You will be on Lovenox for 4 weeks to prevent blood clots 2. Oxycontin - Take one every 12 hours. 3. Percocet - Take, as directed, when you need it, every four to six hours to control your pain. 4. Colace & Senokot - Take to prevent constipation which can be caused by narcotics. These can be bought [id number] at the pharmacy * The most common side effects of pain medicine and iron are nausea and constipation. If nausea or constipation is too much of a problem or if you have any questions about your new medicines or doses, call [facility] at . We will try to help you manage these issues. VERY IMPORTANT TO READ AND REVIEW" Blood Clots and Blood Thinning Medicine: * You are given Lovenox x 4 weeks to prevent DVT Physical Therapy: * Do your physical therapy at home. These are the exercises you learned while in the hospital (quad sets, leg raises, calf pumps, gluteal squeezes, knee bending, and heel props.) You should do these exercises 3-4 times per day. * You will either go to inpatient rehab ([facility]), home with Home Therapy and nursing or home with outpatient rehab. You should do rehab with the therapist 2-3 times per week. You should do therapy on your own daily. * You may bear full weight on your leg with crutches or walker unless otherwise advised. Home Exercise: * You were shown a series of exercises (heel props, heel slides, etc.) in the hospital. Do these exercises three to four times each day including the exercises you were shown in physical therapy. Walking: * You may be up for short periods of time. Standing and walking for 1-2 hours at a time is usually okay. You should not stand or walk for excessive periods of time as this may cause increased pain and swelling. SELF CARE INSTRUCTIONS AFTER TOTAL KNEE REPLACEMENT A. You may need to continue a physical therapy program after discharge from the hospital. There are several options available to you. Your doctor will assist you in selecting the best one for you. 1. An out-patient facility 2 to 3 times a week for therapy or home therapy. 2. Continue working on all exercises taught to you in the hospital. Your goals should be to increase bending of your knee to 90 degrees and beyond and to fully straighten your knee. B. Your therapist will notify you when you are able to progress from a walker to a cane. C. Wear TEDS as much as possible.~ They may be removed at night for laundering. D. Do not place a pillow behind your knee when resting. A pillow at your ankle is okay. E. Ice your knee 15-20 minutes every 2-3 hours and elevate it above the level of your heart. F. You may shower on the fourth day after surgery using regular soap and water. Do not submerge until the wound is completely healed (approximately 2 weeks ). Until the fourth day after surgery, cover the incision/bandage with a bag or plastic wrap. G. Anyone who is touching your surgical incision area should wash their hands and wear gloves. H. Keep your incision covered with gauze pads under the PRINCESS hose until it is dry. VERY IMPORTANT TO READ AND REVIEW B. There are a few signs you need to watch for after you are home. Call [facility] if you notice any of the followin. Increased severe knee pain. Some pain is expected especially when you exercise. 2. Increased swelling in your leg or knee; pain or swelling of the calf muscle in either lower leg. 3. Any fluid drainage from the incision. 4. Shortness of breath or chest pain. 5. Numbness and tingling in the surgical extremity C. Please call [facility] at if you have any concerns or questions about your operation or recovery. The doctor or his nurse will return your call promptly. D. Do not have any elective dental work or other elective procedures done for 6 weeks after your knee replacement. When you have any invasive procedure (dental cleaning, extraction, colonoscopy etc) performed, you will need to take antibiotics to prevent infection from developing in your artificial joint. Tell your other health care providers you have an artificial joint. My office will supply you with further information and the antibiotics. Call your doctor if: * Temperature above 101 degrees F. * Pain not relieved by pain medicine ordered. * Increased drainage or redness from incision. * Notify your doctor with any questions or concerns. Follow-up Visit: You will follow-up with Dr. Giles 10-14 days after surgery. The office number is . Avoid all tobacco products. If you need help to stop smoking, call [facility] at . This is a free call. Current Hospital Diet Patient's current hospital diet: Regular Diet Discharge Diet Recommended Diet: Regular Diet Procedures Procedures Performed: Left Total Knee Arthroplasty Pending Studies Studies pending at discharge: no Physician Orders On Transfer Dressing Changes: daily dressing changes with ABD, keep covered with TEDs Additional Orders: PT/OT: Eval & Treat 2-3 times weekly DX: S/P Left TKA POLST Discussion: without POLST completion Laboratory Results Hemoglobin A1c Test 07/28/16 07:55 Range/Units Estimated Average Glucose 114 mg/dl Hemoglobin A1c 5.6 4.5-5.6 % Lipid Panel Test 07/28/16 07:55 Range/Units Triglycerides Level 65 0-150 mg/dl Cholesterol Level 201 H 0-200 mg/dl HDL Cholesterol 85 mg/dl Cholesterol/HDL Ratio 2.4 LDL Cholesterol, Calculated 103 mg/dl Medical Emergencies . Who to Call and When: Medical Emergencies: If at any time you feel your situation is an emergency, please call 911 immediately. . Non-Emergent Contact Non-Emergency issues call your: Primary Care Provider . . "Provider Documentation" section prepared by Brody Vela. Core Measure Problem Core Measures: VTE VTE Core Measures Date of VTE Diagnosis: Sep 28, 2016 Time of VTE Diagnosis: 09:20 Reason no anticoag overlap I/P: Treatment provided - N/A Reason no anticoag overlap @DC: Treatment provided - N/A [place] Drug Monitoring Program Search Results: no issues identified
[2016-09-28] MEDS ORDERED: METOCLOPRAMIDE HCL INJ 5 MG/ML 2 ML VIAL IV PRN (09:45)
--- NOTE | 2016-09-28 09:59 | PROGRESS NOTE ---
DATE: 09/28/2016 The patient is seen and examined with Brody Vela. He and I discussed the results of the evaluation. I am in agreement with the plan. Sarah noted some medicine that was given last night that gave her good pain relief, that was Toradol. She did receive another dose this morning, but it has timed out. She also had issues with nausea and I have added a scopolamine patch. She has Zofran and Phenergan. I think will change the Phenergan to Reglan. She has a trace dorsalis pedis pulse. Normal sensation. 5/5 ankle and toe plantar flexion and dorsiflexion. She is getting ready to get up with PT. Her labs and vitals are noted. Will continue with pain control, DVT prophylaxis with Lovenox. She will use her knee immobilizer only when she is up today and plan on dressing change tomorrow.
[2016-09-28] MEDS ORDERED: SCOPOLAMINE 1.5 MG TDSY TD SCH (11:00)
[2016-09-28] MEDS ORDERED: ALBUT/IPRATROP 3MG/0.5MG NEB 3 ML VIAL INH PRN (11:00)
[2016-09-28] MEDS: MoRPHine SULFATE 2 MG/ML CARP IV PRN ×3 (11:33→22:43)
[2016-09-28] MEDS: CHECK SCOPOLAMINE PATCH PLACEMENT SCH ×2 (16:00→23:50)
--- NOTE | 2016-09-28 16:01 | Progress Note ---
Subjective Date of Service: Sep 28, 2016. Subjective Pt evaluation today including: conversation w/ patient, physical exam, chart review, review of studies, review of inpatient medication list c/o she is in pain 8-04/23 wants only albuterol nebs, not duonebs Problem List Medical Problems: (1) Fever Status: Acute (2) Pneumonia Status: Acute Review of Systems All Other Systems: Reviewed and Negative Medications Acetaminophen (Tylenol Tab) 1,000 mg Q8 PRN PO; Start 09/27/16 at 13:15; Stop 10/27/16 at 13:14 Albuterol (Ventolin Hfa Inhaler) 1 puffs Q2H PRN INH Last administered on 10:49; Admin Dose 1 PUFFS; Start 09/27/16 at 20:17; Stop 10/27/16 at 20:16 Albuterol Sulfate (Ventolin 0.083% 2.5MG/3ML Neb) 2.5 mg Q6R PRN INH; Start at 16:00; Stop 10/28/16 at 15:59 Amlodipine Besylate (Norvasc Tab) 2.5 mg QAM PO Last administered on 09/28/16 08:40; Admin Dose 2.5 MG; Start 09/28/16 at 09:00; Stop 10/28/16 at 08:59 Amphetamine Aspartate/ Amphetam Sulf (Amphetamine/ Dextroampheta 5 Mg) 7.5 mg QAM PO Last administered on 09/28/16 08:41; Admin Dose 7.5 MG; Start 09/28/16 at 09:00; Stop 10/28/16 at 08:59 Aspirin (Ecotrin Tab) 81 mg QAM PO Last administered on 09/28/16 08:41; Admin Dose 81 MG; Start 09/28/16 at 09:00; Stop 10/28/16 at 08:59 Atenolol (Tenormin Tab) 25 mg QAM PO Last administered on 09/28/16 08:41; Admin Dose 25 MG; Start 09/28/16 at 09:00; Stop 10/28/16 at 08:59 Cetirizine HCl (zyrTEC TAB) 10 mg DAILY PO Last administered on 09/28/16 08:40 ; Admin Dose 10 MG; Start 09/28/16 at 09:00; Stop 10/28/16 at 08:59 Docusate Sodium (coLACE CAP) 100 mg BID PO Last administered on 09/27/16 21:36 ; Admin Dose 100 MG; Start 09/27/16 at 21:00; Stop 10/27/16 at 20:59 Enoxaparin Sodium (Lovenox Inj) 30 mg Q12H SQ Last administered on 09/28/16 07: 37; Admin Dose 30 MG; Start 09/28/16 at 08:00; Stop 10/28/16 at 07:59 Lisinopril (Zestril Tab) 40 mg QAM PO Last administered on 09/28/16 08:40; Admin Dose 40 MG; Start 09/28/16 at 09:00; Stop 10/28/16 at 08:59 Metoclopramide HCl (Reglan Inj) 10 mg Q6H PRN IV; Start 09/28/16 at 09:45; Stop 10/28/16 at 09:44 Miscellaneous (Remove Clonidine Patch) 1 ea Q72H N/A; Start 09/30/16 at 06:00; Stop 09/30/16 at 06:01 Miscellaneous (Remove Transderm-Scop Patch) 1 ea Q72H N/A; Start 10/01/16 at 10: 59; Stop 10/31/16 at 10:58 Miscellaneous Information (Check Scopolamine Patch Placement) 1 ea QS N/A Last administered on 09/28/16 16:00; Admin Dose 1 EA; Start 09/28/16 at 16:00; Stop 10/28/16 at 15:59 Miscellaneous Information (Check Clonidine Patch Placement) 1 ea QS N/A Last administered on 09/28/16 16:00; Admin Dose 1 EA; Start 09/27/16 at 00:00; Stop 10/27/16 at 00:00 Morphine Sulfate (MoRPHine SULFATE INJ) 2 mg Q4H PRN IV; Start 09/28/16 at 17: 45; Stop 10/12/16 at 17:44 Morphine Sulfate (MoRPHine SULFATE INJ) 4 mg Q4H PRN IV; Start 09/28/16 at 17: 45; Stop 10/12/16 at 17:44 Ondansetron HCl (Zofran Inj) 4 mg Q6H PRN IV Last administered on 09/28/16 05: 23; Admin Dose 4 MG; Start 09/27/16 at 10:00; Stop 10/27/16 at 09:59 Oxycodone HCl (Oxycontin Tab) 10 mg Q12 PO; Start 09/28/16 at 18:00; Stop at 17:59 Oxycodone HCl (Roxicodone Immediate Rel Tab) @ Q4 PRN PO Last administered on 16:53; Admin Dose 10 MG; Start 09/27/16 at 13:15; Stop 10/11/16 at 13: 14 Pantoprazole Sodium (Protonix Tab) 40 mg QAM PO Last administered on 09/28/16 08:40; Admin Dose 40 MG; Start 09/28/16 at 09:00; Stop 10/28/16 at 08:59 Scopolamine (Transderm-Scop Patch) 1.5 mg Q72H TD Last administered on 11:32; Admin Dose 1.5 MG; Start 09/28/16 at 11:00; Stop 10/28/16 at 10:59 Senna (Senokot Tab) 17.2 mg HS PO Last administered on 09/27/16 21:36; Admin Dose 17.2 MG; Start 09/27/16 at 21:00; Stop 10/27/16 at 20:59 Tramadol HCl (Ultram Tab) 1 tablet for pain rating... Q4H PRN PO; Start at 10:00; Stop 10/27/16 at 09:59 Objective Vital Signs Date Time Temp Pulse Resp B/P Pulse Ox O2 Delivery O2 Flow Rate FiO2 09/28/16 15:40 37.3 75 18 107/71 92 Room Air 09/28/16 11:30 85 18 90 Room Air 09/28/16 11:24 36.8 76 16 113/78 96 Room Air 09/28/16 09:15 80 92 09/28/16 07:44 36.7 80 18 109/69 90 Room Air 09/28/16 07:25 Room Air 09/28/16 02:52 36.6 68 15 97/67 90 Room Air 09/27/16 23:15 Room Air 2/14/17 23:07 36.5 88 18 105/70 92 Room Air 09/27/16 21:50 83 18 93 Room Air 09/27/16 18:41 36.6 83 16 100/66 92 Room Air Physical Exam Comments: nad, aox3 eomi, perrl, anicteric s1 s2 rrr, no m/r/g ctab no w/r/r abd soft, nt/nd +BS no LE edema Laboratory Results Last 24 Hours Test 09/27/16 16:53 09/28/16 05:25 Bedside Glucose 128 mg/dl White Blood Count 9.24 K/uL Red Blood Count 3.85 M/uL Hemoglobin 11.3 g/dL Hematocrit 33.5 % Mean Corpuscular Volume 87.0 fL Mean Corpuscular Hemoglobin 29.4 pg Mean Corpuscular Hemoglobin Concent 33.7 g/dl Platelet Count 226 K/uL Mean Platelet Volume 9.3 fL Neutrophils (%) (Auto) 70.2 % Lymphocytes (%) (Auto) 17.4 % Monocytes (%) (Auto) 11.4 % Eosinophils (%) (Auto) 0.5 % Basophils (%) (Auto) 0.3 % Neutrophils # (Auto) 6.48 K/uL Lymphocytes # (Auto) 1.61 K/uL Monocytes # (Auto) 1.05 K/uL Eosinophils # (Auto) 0.05 K/uL Basophils # (Auto) 0.03 K/uL RDW Standard Deviation 41.6 fL RDW Coefficient of Variation 12.9 % Immature Granulocyte % (Auto) 0.2 % Immature Granulocyte # (Auto) 0.02 K/uL Sodium Level 141 mmol/L Potassium Level 4.1 mmol/L Chloride Level 107 mmol/L Carbon Dioxide Level 26 mmol/L Anion Gap 8.0 mmol/L Blood Urea Nitrogen 19 mg/dl Creatinine 1.20 mg/dl Est Creatinine Clear Calc Drug Dose 35.1 ml/min Estimated GFR () 51.2 Estimated GFR (Non- 44.2 BUN/Creatinine Ratio 15.5 Random Glucose 97 mg/dl Calcium Level 8.3 mg/dl Total Bilirubin 0.3 mg/dl Aspartate Amino Transf (AST/SGOT) 18 U/L Alanine Aminotransferase (ALT/SGPT) 22 U/L Alkaline Phosphatase 56 U/L Total Protein 6.2 gm/dl Albumin 3.3 gm/dl Globulin 2.9 gm/dl Albumin/Globulin Ratio 1.1 Assessment and Plan 1. L knee osteoarthritis - POD #1 s/p arthroplasty - pain regimen per ortho - bowel regimen 2. Nausea - likely from pain meds - zofran as needed - has scopolamine patch on 3. HTN - well-controlled right now despite not taking lisinopril this morning - cont amlodipine, atenolol, lisinopril 4. COPD - prn albuterol - stable at the moment 5. DVT ppx will be deferred to ortho 6. Hyperglycemia - non-diabetic - fasting glucose wnl.
[2016-09-28] MEDS ORDERED: MoRPHine SULFATE 4 MG/ML 1 ML CARP\\VIAL IV PRN (17:45)
[2016-09-28] MEDS ORDERED: MoRPHine SULFATE 2 MG/ML CARP IV PRN (17:45)
[2016-09-28] MEDS: OXYCODONE HCL 10 MG TABCR (OXYCONTIN) PO SCH (18:03)
[2016-09-28] MEDS: TRAMADOL HCL 50 MG TAB PO PRN ×2 (18:03→22:44)
--- NOTE | 2016-09-28 18:51 | PROGRESS NOTE ---
DATE: 09/28/2016 Sarah has been having pain. She seems to be better with nausea. We went over all of her pain and nausea medications. I met with the nurse as well as the charge nurse to discuss pain management issues. Will apply ice. Tentative plan is for [facility] for tomorrow if approved. The pain must be controlled. I have added OxyContin, increased her morphine to 2-4 mg and informed her that she also has Ultram and Tylenol to take for pain medication.
[2016-09-28] MEDS: ALBUTEROL 0.083% NEBU SOLN 3 ML VIAL INH PRN (21:38)
[2016-09-28] MEDS: SENNA 8.6 MG TAB PO SCH (22:53)
[2016-09-29] VITALS (8 sets, daily range): BP systolic 98–123; BP diastolic 66–78; PULSE 69–85; TEMP 36.4–36.9; O2SAT 94–98
[2016-09-29] MEDS: OXYCODONE HCL IR 5 MG TAB (IMMEDIATE RELEASE) PO PRN ×3 (04:50→19:28)
[2016-09-29] MEDS: ALBUTEROL 0.083% NEBU SOLN 3 ML VIAL INH PRN ×2 (05:11→14:36)
[2016-09-29] MEDS: CHECK CLONIDINE PATCH PLACEMENT SCH ×2 (07:59→16:00)
[2016-09-29] MEDS: CHECK SCOPOLAMINE PATCH PLACEMENT SCH ×2 (07:59→16:00)
[2016-09-29] MEDS: MoRPHine SULFATE 2 MG/ML CARP IV PRN (08:04)
[2016-09-29] MEDS: ENOXAPARIN 30 MG/0.3 ML SYR SQ SCH ×2 (08:06→19:29)
[2016-09-29] MEDS: TRAMADOL HCL 50 MG TAB PO PRN ×2 (08:44→17:28)
--- NOTE | 2016-09-29 08:54 | Progress Note ---
Orthopedic SOAP Note Subjective Date of Service: Sep 29, 2016. Post OP Day: 2 Reports: feeling well, pain controlled w PO medications, Denies: SOB, calf pain , chest pain, complaints, light headedness, nausea / vomiting, using PET AMBASSADOR Problem List Medical Problems: (1) Fever Status: Acute (2) Pneumonia Status: Acute Objective calves soft nontender, N/V intact, capillary refill less than 2 sec., dressing C /D/I, incision C/D/I, A&O x3, toes mobile Date Time Temp Pulse Resp B/P Pulse Ox O2 Delivery O2 Flow Rate FiO2 09/29/16 07:45 36.9 82 16 123/77 98 Nasal Cannula 2.0 09/29/16 05:00 82 24 94 Nasal Cannula 3.0 09/28/16 23:50 Nasal Cannula 3.0 09/28/16 23:38 36.6 76 16 99/67 95 Nasal Cannula 3.0 09/28/16 21:38 59 18 96 Room Air 09/28/16 16:30 Room Air 09/28/16 15:40 37.3 75 18 107/71 92 Room Air 09/28/16 11:30 85 18 90 Room Air 09/28/16 11:24 36.8 76 16 113/78 96 Room Air 09/28/16 09:15 80 92 Assessment post op day 2 s/p Left TKA Plan continue post op care PT/OT daily dressing to be changed tomorrow morning pain control with prescribed medications DVT prophylaxis with Lovenox 30mg q 12 hours x 4 weeks WBAT Left L.E and walker assist dressing changed resume diet ice/elevate [facility] transfer accepted, awaiting bed Will discuss findings further with Dr. Giles
[2016-09-29] MEDS ORDERED: TRAM-10 PO (08:57)
[2016-09-29] MEDS ORDERED: OXYC-292 PO (08:57)
[2016-09-29] MEDS: DOCUSATE SODIUM 100 MG CAP PO SCH ×2 (10:05→20:46)
[2016-09-29] MEDS: CETIRIZINE HCL 10 MG TAB PO SCH (10:05)
[2016-09-29] MEDS: AMLODIPINE BESYLATE 5 MG TAB PO SCH (10:05)
[2016-09-29] MEDS: ASPIRIN 81 MG ECTAB PO SCH (10:05)
[2016-09-29] MEDS: PANTOprazole SOD 40 MG TAB PO SCH (10:06)
[2016-09-29] MEDS: LISINOPRIL 40 MG TAB PO SCH (10:06)
[2016-09-29] MEDS: AMPHETAMINE ASP/SULF/DEXTRAMPH 5 MG TAB PO SCH (10:11)
[2016-09-29] MEDS: OXYCODONE HCL 10 MG TABCR (OXYCONTIN) PO SCH ×2 (10:13→20:47)
--- NOTE | 2016-09-29 17:50 | Progress Note ---
Subjective Date of Service: Sep 29, 2016. Subjective Pt evaluation today including: conversation w/ patient Pt is for d/c later today. Ongoing ambulation issues that she is concerned about, still with a lot of pain related to post-op status. Tolerating PO. No chest pain or SOB. Pt denies fever, abd pain, n/v/c/d. ROS as noted above, otherwise neg. Problem List Medical Problems: (1) Fever Status: Acute (2) Pneumonia Status: Acute Objective Vital Signs Date Time Temp Pulse Resp B/P Pulse Ox O2 Delivery O2 Flow Rate FiO2 09/29/16 16:30 94 Nasal Cannula 3.0 09/29/16 15:22 36.5 82 16 98/66 94 Nasal Cannula 3.0 09/29/16 14:36 82 20 95 Nasal Cannula 2.0 09/29/16 11:11 36.4 69 16 113/78 96 Nasal Cannula 2.0 09/29/16 10:00 85 101/70 09/29/16 07:50 Nasal Cannula 3.0 09/29/16 07:45 36.9 82 16 123/77 98 Nasal Cannula 2.0 09/29/16 05:00 82 24 94 Nasal Cannula 3.0 09/28/16 23:50 Nasal Cannula 3.0 09/28/16 23:38 36.6 76 16 99/67 95 Nasal Cannula 3.0 09/28/16 21:38 59 18 96 Room Air Physical Exam General Appearance: WD/WN, no apparent distress Respiratory/Chest: no respiratory distress Cardiovascular: no edema Extremities: non-tender, no pedal edema Neurologic/Psychiatric: alert, oriented x 3 Skin: normal color, warm/dry Assessment and Plan 1. L knee osteoarthritis - s/p arthroplasty on 09/27 - pain regimen per ortho - bowel regimen 2. Nausea - likely from pain meds - zofran as needed - has scopolamine patch on 3. HTN - well-controlled right now despite not taking lisinopril this morning - cont amlodipine, atenolol, lisinopril 4. COPD - prn albuterol - stable at the moment 5. DVT ppx will be deferred to ortho 6. Hyperglycemia - non-diabetic - fasting glucose wnl. Planning for [facility] on d/c
[2016-09-29] MEDS: SENNA 8.6 MG TAB PO SCH (20:46)
--- NOTE | 2016-09-29 21:05 | PROGRESS NOTE ---
DATE: 09/29/2016 She appears to have continued problems with pain. We again reviewed her pain medication regimen. She has 5 different medications available to help her with pain. She is afebrile. Her vital signs are stable. She did not have any labs done today. Her dressing is clean and dry. Her incision is benign in appearance. She has minimal swelling in her knee and does not have a tense hemarthrosis. There is no drainage. She has 1+ dorsalis pedis pulse with normal sensation and motor function in her foot and ankle. IMPRESSION: Left total knee replacement, attention deficit hyperactivity disorder, asthma, hypertension, osteoporosis, chronic obstructive pulmonary disease. PLAN: I think that she is doing well. Reassurance was offered. I reviewed with her the pain medication regimen. Nausea appears to be reasonably well controlled. She will be on Lovenox for DVT prophylaxis. She has been accepted to [facility] and is awaiting a bed and we will transfer her when the bed is available. I spoke with family and friends.
[2016-09-30] MEDS: CHECK CLONIDINE PATCH PLACEMENT SCH (00:20)
[2016-09-30] MEDS: CHECK SCOPOLAMINE PATCH PLACEMENT SCH ×2 (00:20→08:00)
[2016-09-30] MEDS: OXYCODONE HCL IR 5 MG TAB (IMMEDIATE RELEASE) PO PRN ×2 (05:10→12:54)
[2016-09-30 05:15] VITALS: PULSE 84; O2SAT 95
[2016-09-30] MEDS: ALBUTEROL 0.083% NEBU SOLN 3 ML VIAL INH PRN (05:15)
[2016-09-30 07:31] LABS: HEMATOCRIT 30.4 % (37-47); MEAN CELL VOLUME 89.7 fL (80-100); MEAN CORPUSCULAR HEMOGLOBIN 29.2 pg (25-34); MEAN CORPUSCULAR HGB CONC 32.6 g/dl (32-36); MEAN PLATELET VOLUME 9.9 fL (7.4-10.4); PLATELET COUNT 202 K/uL (130-400); RED BLOOD COUNT 3.39 M/uL (4.2-5.4); WHITE BLOOD COUNT 5.76 K/uL (4.8-10.8)
[2016-09-30 08:12] LABS: CREATININE 0.85 mg/dl (0.60-1.20)
--- NOTE | 2016-09-30 08:19 | Progress Note ---
Orthopedic SOAP Note Subjective Date of Service: Sep 30, 2016. Post OP Day: 3 Reports: feeling well, pain controlled w PO medications, Denies: SOB, calf pain , chest pain, complaints, light headedness, nausea / vomiting, using MANAGER CONTACT Problem List Medical Problems: (1) Fever Status: Acute (2) Pneumonia Status: Acute Objective calves soft nontender, N/V intact, capillary refill less than 2 sec., dressing C /D/I, incision C/D/I, A&O x3, toes mobile patient much more pleasant today pain appears to be controlled better does not appear to be as agitated looking forward to transfer today Date Time Temp Pulse Resp B/P Pulse Ox O2 Delivery O2 Flow Rate FiO2 09/30/16 05:15 84 20 95 Nasal Cannula 2.0 09/29/16 23:45 Nasal Cannula 2.0 09/29/16 23:00 36.8 74 15 102/69 96 Nasal Cannula 3.0 09/29/16 16:30 94 Nasal Cannula 3.0 09/29/16 15:22 36.5 82 16 98/66 94 Nasal Cannula 3.0 09/29/16 14:36 82 20 95 Nasal Cannula 2.0 09/29/16 11:11 36.4 69 16 113/78 96 Nasal Cannula 2.0 09/29/16 10:00 85 101/70 Laboratory Results 24 Hours: Test 09/30/16 07:10 Hematocrit 30.4 % Hemoglobin 9.9 g/dL Assessment post op day 3 s/p Left TKA Plan continue post op care PT/OT daily dressing changed pain control with prescribed medications DVT prophylaxis with Lovenox 30mg q 12 hours x 4 weeks WBAT Left L.E and walker assist resume diet ice/elevate [facility] transfer accepted, awaiting bed Will discuss findings further with Dr. Giles
[2016-09-30 08:37] VITALS: BP 106/69; PULSE 80; TEMP 37; O2SAT 99
[2016-09-30] MEDS: ASPIRIN 81 MG ECTAB PO SCH (08:39)
[2016-09-30] MEDS: DOCUSATE SODIUM 100 MG CAP PO SCH (08:39)
[2016-09-30] MEDS: PANTOprazole SOD 40 MG TAB PO SCH (08:40)
[2016-09-30] MEDS: AMLODIPINE BESYLATE 5 MG TAB PO SCH (08:40)
[2016-09-30] MEDS: CETIRIZINE HCL 10 MG TAB PO SCH (08:41)
[2016-09-30] MEDS: LISINOPRIL 40 MG TAB PO SCH (08:41)
[2016-09-30] MEDS: ENOXAPARIN 30 MG/0.3 ML SYR SQ SCH (08:42)
[2016-09-30] MEDS: ALBUTEROL HFA 8 GM INHALER INH PRN (08:43)
[2016-09-30] MEDS: OXYCODONE HCL 10 MG TABCR (OXYCONTIN) PO SCH (08:48)
[2016-09-30] MEDS: AMPHETAMINE ASP/SULF/DEXTRAMPH 5 MG TAB PO SCH (08:48)
[2016-09-30 09:00] VITALS: BP 102/72; PULSE 86; TEMP 37; O2SAT 94
--- NOTE | 2016-09-30 09:16 | DISCHARGE SUMMARY ---
DATE OF DISCHARGE AND TRANSFER: 09/30/2016. ATTENDING PHYSICIAN: Dr. Giles. PREOPERATIVE DIAGNOSIS: Left knee degenerative joint disease. POSTOPERATIVE DIAGNOSIS: Status post left total knee arthroplasty. PROCEDURE PERFORMED: Left total knee arthroplasty on 09/27/[address] Giles from [facility] at the [facility]. HOSPITAL COURSE: Sarah is a 76-year-old female patient of Dr. Giles's from [facility] that underwent a left total knee arthroplasty on 09/27/[address] Giles at the [facility]. She tolerated the procedure very well. Over the next several days, her activity levels progressed to the point where she was able to be transferred. The patient had some difficulty with pain control and ultimately appropriate medications were ordered and her pain medication and regimen were appropriate for her tolerance. Physical therapy most recently on 09/29/2016 the patient ambulated 15 feet, first attempt at 14 feet using a walker and with minimal assistance. The patient required 2-person assist, daily dressing changes were performed and incision remained clean and closed, dry and intact with continued maintenance of neurovascular status in the left lower extremity. VITAL SIGNS: Upon discharge reveal a temperature of 36.8, pulse of 84, respiratory rate 20. Most recent blood pressure of 102/69, pulse ox 95% on 2 liters nasal cannula. LABORATORY VALUES: On 09/30/2016 reveals a white count of 5.7, hemoglobin is 9.9, hematocrit is 30.4, platelet count of 202 and chemistry is currently pending. DISCHARGE INSTRUCTIONS: 1. Transfer today on 09/30/2016. 2. Deep venous thrombosis prophylaxis with Lovenox 30 mg q. 12 hours x4 weeks. 3. Pain control with prescribed medication. PERTINENT DISCHARGE MEDICATIONS: Include again Lovenox 30 mg q. 12 hours x30 days, OxyContin 10 mg tab q. 12 hours, Percocet 5/325 mg 1-2 tabs every 4 hours and tramadol 50 mg every 4 hours as needed for pain. ASSESSMENT AND PLAN: 1. Weight bear as tolerated left lower extremity with walker and assist. 2. Ice and elevate left lower extremity. 3. Resume previous diet. 4. Physical therapy and occupational therapy daily. 5. Daily dressing changes. 6. Follow up with Dr. Giles in 2 weeks for staple removal at [facility]. 7. Any other questions or concerns, notify [facility] at [phone].
[2016-09-30 11:08] VITALS: BP 102/72; PULSE 86; TEMP 37; O2SAT 94
[2016-09-30] MEDS ORDERED: RXC5 PO (13:20)
--- NOTE | 2016-09-30 14:53 | Progress Note ---
Subjective Date of Service: Sep 30, 2016. Subjective Pt is for d/c. No new issues. No chest pain or SOB. Tolerating PO. Problem List Medical Problems: (1) Fever Status: Acute (2) Pneumonia Status: Acute Objective Vital Signs Date Time Temp Pulse Resp B/P Pulse Ox O2 Delivery O2 Flow Rate FiO2 09/30/16 11:08 37.0 86 16 94 Nasal Cannula 09/30/16 09:00 37.0 86 16 102/72 94 Room Air 09/30/16 08:37 37.0 80 16 106/69 99 Nasal Cannula 2.0 09/30/16 08:30 Nasal Cannula 2.0 09/30/16 05:15 84 20 95 Nasal Cannula 2.0 09/29/16 23:45 Nasal Cannula 2.0 09/29/16 23:00 36.8 74 15 102/69 96 Nasal Cannula 3.0 09/29/16 16:30 94 Nasal Cannula 3.0 09/29/16 15:22 36.5 82 16 98/66 94 Nasal Cannula 3.0 Physical Exam Comments: General Appearance: WD/WN, no apparent distress Respiratory/Chest: no respiratory distress Cardiovascular: no edema Extremities: non-tender, no pedal edema Neurologic/Psychiatric: alert, oriented x 3 Skin: normal color, warm/dry Laboratory Results Last 24 Hours Test 09/30/16 07:10 White Blood Count 5.76 K/uL Red Blood Count 3.39 M/uL Hemoglobin 9.9 g/dL Hematocrit 30.4 % Mean Corpuscular Volume 89.7 fL Mean Corpuscular Hemoglobin 29.2 pg Mean Corpuscular Hemoglobin Concent 32.6 g/dl RDW Standard Deviation 43.6 fL RDW Coefficient of Variation 13.4 % Platelet Count 202 K/uL Mean Platelet Volume 9.9 fL Creatinine 0.85 mg/dl Est Creatinine Clear Calc Drug Dose 49.5 ml/min Estimated GFR () 77.7 Estimated GFR (Non- 67.0 Assessment and Plan 1. L knee osteoarthritis - s/p arthroplasty on 09/27 - pain regimen per ortho - bowel regimen 2. Nausea - likely from pain meds - zofran as needed - has scopolamine patch on 3. HTN - well-controlled right now despite not taking lisinopril this morning - cont amlodipine, atenolol, lisinopril 4. COPD - prn albuterol - stable at the moment 5. DVT ppx will be deferred to ortho 6. Hyperglycemia - non-diabetic - fasting glucose wnl. Planning for [facility] on d/c
== END 2016-09-30 14:19 | DRG 470 ==
LOC: ENRESERVTM → ENRESERVDT → C.ACU 05:06 → C.3E 06:25
PROVIDERS: ADMIT Physical Medicine & Rehabilitation Sports Medicine; ATTEND Physical Medicine & Rehabilitation Sports Medicine
PROC: 0SRD0J9 Replacement of Left Knee Joint with Synthetic Substitute, Cemented, Open Approach (ICD-10-PCS; principal; 2016-09-27 07:00)
DX: M17.9 Osteoarthritis of knee, unspecified (principal); I10 Essential (primary) hypertension; J44.9 Chronic obstructive pulmonary disease, unspecified; F90.9 Attention-deficit hyperactivity disorder, unspecified type; E78.1 Pure hyperglyceridemia; M81.0 Age-related osteoporosis without current pathological fracture; Z79.82 Long term (current) use of aspirin; Z79.899 Other long term (current) drug therapy; Z96.651 Presence of right artificial knee joint; Z80.3 Family history of malignant neoplasm of breast; Z80.2 Family history of malignant neoplasm of other respiratory and intrathoracic organs; Z87.891 Personal history of nicotine dependence

== ENCOUNTER → 2016-10-24 | Outpatient (CLI) | payer OTHER, MEDICARE ==
[~2016-10-24] MED LIST changes: +ALBINS/ INH; +CETI10TA84 PO; +LVNIS30 SQ; +OXYC-292 PO; +OXYC-57 PO; +RXC5 PO
[2016-10-24 12:51] LABS: BASO % 1.4 %; COMPLETE YES; EOS % 6.4 %; HEMATOCRIT 33.9 % (37-47); IG% 0.1 %; LYMPH % 22.1 %; LYMPH ABS # 1.61 K/uL (1.2-3.4); MEAN CELL VOLUME 86.9 fL (80-100); MEAN CORPUSCULAR HEMOGLOBIN 27.9 pg (25-34); MEAN CORPUSCULAR HGB CONC 32.2 g/dl (32-36); MEAN PLATELET VOLUME 9.7 fL (7.4-10.4); MONO % 8.8 %; NEUT % 61.2 %; PLATELET COUNT 378 K/uL (130-400); WHITE BLOOD COUNT 7.29 K/uL (4.8-10.8)
[2016-10-24 13:04] LABS: BLOOD UREA NITROGEN 15 mg/dl (7-18); CALCIUM 9.3 mg/dl (8.5-10.1); CARBON DIOXIDE 25 mmol/L (21-32); CHLORIDE 105 mmol/L (98-107); CREATININE 0.76 mg/dl (0.60-1.20); GLUCOSE 82 mg/dl (70-99); POTASSIUM 3.7 mmol/L (3.5-5.1); SODIUM 141 mmol/L (136-145)
[2016-10-24 13:22] LABS: ESTIMATED AVERAGE GLUCOSE 111 mg/dl; HA1C FLAG Normal (Normal)
== END | disposition home or self-care (01) ==
LOC: C.LABBFT 07:47
PROVIDERS: ATTEND Internal Medicine
DX: R73.03 Prediabetes (principal); R73.09 Other abnormal glucose

== ENCOUNTER → 2016-12-05 | Outpatient (CLI) | payer OTHER, MEDICARE ==
[~2016-12-05] MED LIST changes: +AMPH20TA2 PO; +VNTHFA/IN INH
--- NOTE | 2016-12-05 10:14 | DIAGNOSTIC IMAGING REPORT ---
LEFT KNEE 3 VIEWS CLINICAL HISTORY: Left knee pain status post trauma COMPARISON: None. DISCUSSION: There are postsurgical changes of a total left knee arthroplasty and patellar resurfacing. No acute fractures are visualized. There is mild anterior soft tissue swelling. There is an equivocal small joint effusion. IMPRESSION: Postsurgical change. Equivocal small joint effusion. No fractures are visualized. Electronically signed by: Brenden Santos M.D. 12/05/2016 10:12 AM Dictated Date/Time: 12/05/2016 10:11 AM
--- NOTE | 2016-12-05 10:18 | DIAGNOSTIC IMAGING REPORT ---
LEFT FEMUR 2 VIEWS CLINICAL HISTORY: Left leg pain status post fall. COMPARISON: Left knee radiograph August 26, 2016. FINDINGS: Alignment of the left hip is anatomic. There is no acute fracture of the left femur. Alignment of the total left knee arthroplasty is anatomic. There is no periprosthetic fracture. This is possible small left knee joint effusion. There is soft tissue swelling adjacent to the left knee following arthroplasty. IMPRESSION: 1. No acute fracture of the left femur. 2. Status post total left knee arthroplasty. No periprosthetic fracture. Possible left knee joint effusion with soft tissue swelling. Electronically signed by: Tony Aponte M.D. 12/05/2016 10:16 AM Dictated Date/Time: 12/05/2016 10:14 AM
--- NOTE | 2016-12-05 10:31 | DIAGNOSTIC IMAGING REPORT ---
LEFT TIBIA/FIBULA 2 VIEWS CLINICAL HISTORY: Left lower leg pain COMPARISON: None. DISCUSSION: There are postsurgical changes of a total left knee arthroplasty. No acute fractures are visualized. No destructive lesions are evident. IMPRESSION: No fractures identified. Electronically signed by: Brenden Santos M.D. 12/05/2016 10:29 AM Dictated Date/Time: 12/05/2016 10:29 AM
== END ==
LOC: C.RDSM 13:44
PROVIDERS: ATTEND Physician Assistant
DX: M79.605 Pain in left leg (principal)

== ENCOUNTER → 2016-12-29 | Outpatient (CLI) | payer OTHER, MEDICARE ==
[2016-12-29 17:28] LABS: BASO % 1.1 %; BASO ABS # 0.06 K/uL (0-0.2); COMPLETE YES; EOS % 3.8 %; HEMATOCRIT 35.4 % (37-47); IG% 0.2 %; LYMPH % 33.9 %; LYMPH ABS # 1.79 K/uL (1.2-3.4); MEAN CELL VOLUME 88.5 fL (80-100); MEAN CORPUSCULAR HEMOGLOBIN 27.5 pg (25-34); MEAN CORPUSCULAR HGB CONC 31.1 g/dl (32-36); MEAN PLATELET VOLUME 9.4 fL (7.4-10.4); MONO % 10.6 %; NEUT % 50.4 %; PLATELET COUNT 307 K/uL (130-400); WHITE BLOOD COUNT 5.28 K/uL (4.8-10.8)
== END ==
LOC: C.LABBFT 17:54
PROVIDERS: ATTEND Internal Medicine
DX: D64.9 Anemia, unspecified (principal)

== ENCOUNTER → 2017-01-25 | Outpatient (CLI) | payer OTHER, MEDICARE | END | disposition home or self-care (01) | LOC: C.RDSM 14:41 | PROVIDERS: ATTEND Physical Medicine & Rehabilitation Sports Medicine | DX: M17.12 Unilateral primary osteoarthritis, left knee (principal) ==

== ENCOUNTER → 2017-03-07 | Outpatient (CLI) | payer OTHER, MEDICARE ==
[~2017-03-07] MED LIST changes: -AMPH20TA2 PO; -VNTHFA/IN INH
== END | disposition home or self-care (01) ==
LOC: C.RDSM 13:20
PROVIDERS: ATTEND Physical Medicine & Rehabilitation Sports Medicine
DX: M25.562 Pain in left knee (principal); Z96.652 Presence of left artificial knee joint

== ENCOUNTER → 2017-03-08 | Outpatient (CLI) | payer OTHER, MEDICARE ==
[2017-03-08 12:35] LABS: HEMATOCRIT 39.1 % (37-47); MEAN CELL VOLUME 89.5 fL (80-100); MEAN CORPUSCULAR HEMOGLOBIN 30.2 pg (25-34); MEAN CORPUSCULAR HGB CONC 33.8 g/dl (32-36); MEAN PLATELET VOLUME 9.6 fL (7.4-10.4); PLATELET COUNT 266 K/uL (130-400); RED BLOOD COUNT 4.37 M/uL (4.2-5.4); WHITE BLOOD COUNT 5.43 K/uL (4.8-10.8)
[2017-03-08 12:59] LABS: BLOOD UREA NITROGEN 20 mg/dl (7-18); BUN/CREATININE RATIO 20.9 (10-20); CALCIUM 9.5 mg/dl (8.5-10.1); CARBON DIOXIDE 27 mmol/L (21-32); CHLORIDE 104 mmol/L (98-107); CHOLESTEROL 246 mg/dl (0-200); CREATININE 0.96 mg/dl (0.60-1.20); GLUCOSE 95 mg/dl (70-99); POTASSIUM 4.4 mmol/L (3.5-5.1); SODIUM 138 mmol/L (136-145); TRIGLYCERIDES 77 mg/dl (0-150); VERY LOW DENSITY LIPOPROT CALC 15 mg/dl
[2017-03-08 13:03] LABS: CHOLESTEROL/HDL RATIO 2.8; HDL CHOLESTEROL 87 mg/dl; LDL CHOLESTEROL CALCULATED 144 mg/dl
[2017-03-08 13:36] LABS: ESTIMATED AVERAGE GLUCOSE 117 mg/dl; HA1C FLAG Normal (Normal)
== END | disposition home or self-care (01) ==
LOC: C.LABBFT 07:53
PROVIDERS: ATTEND Internal Medicine
DX: I10 Essential (primary) hypertension (principal); M81.0 Age-related osteoporosis without current pathological fracture; E78.5 Hyperlipidemia, unspecified; D64.9 Anemia, unspecified; R73.03 Prediabetes

== ENCOUNTER → 2017-03-15 | Outpatient (CLI) | payer OTHER, MEDICARE ==
--- NOTE | 2017-03-15 10:12 | DIAGNOSTIC IMAGING REPORT ---
(CHEST) THORAX WITHOUT CLINICAL HISTORY: LUNG NODULE COMPARISON STUDY: 09/12/2016 CT DOSE: 237.25 mGy.cm TECHNIQUE: CT of the thorax was performed from the thoracic inlet to the lung bases. Images are reviewed in the axial, sagittal, and coronal planes. IV contrast was not administered for this examination. A dose lowering technique was utilized adhering to the principles of ALARA. FINDINGS: Thyroid: Imaged portions of the thyroid gland are normal in appearance. Thoracic aorta: There is aneurysmal dilatation of the ascending thoracic aorta which measures 47 mm. Heart: There are coronary artery calcifications present. Lungs and pleural spaces: No pleural effusions are visualized. There is no focal pulmonary consolidation. There is been interval resolution of the previously described left lower lobe nodules. This indicates a resolving inflammatory process. There are 2 new right upper lobe pulmonary nodules the largest of which is a mixed solid and groundglass 4 mm nodule. Mediastinum: There is no evidence of pathologic mediastinal adenopathy by size criteria Gin: There is no evidence of pathologic hilar adenopathy given the limitations of a noncontrast study Axilla: Clear. Upper abdomen: Cholelithiasis Skeletal structures: There are no lytic or blastic osseous lesions. IMPRESSION: 1. Interval resolution of the left lower lobe point nodules, indicating resolution of an inflammatory process 2. Two new right upper lobe pulmonary nodules, the largest of which is a mixed solid and groundglass 4 mm nodule 3. Cholelithiasis Please refer to below summary of Fleischner criteria recommendations for follow-up of incidental CT nodules (Teodora Mandel, Guidelines for management of small pulmonary nodules detected on CT scans: A statement from the Fleischner Society, Radiology 237: [phone].) SOLID NODULES Solitary nodule size: <6 mm * low risk patients: no follow-up needed * high risk patients: optional CT at 12 months Solitary nodule size: 6-8 mm * low risk patients: follow-up at 6-12 months, then consider further follow-up at 18-24 months * high risk patients: initial follow-up CT at 6-12 months and then at 18-24 months if no change Solitary nodule size: >8 mm * either low or high risk patients - consider follow-up CT at 3 months, and/or CT-PET, and/or biopsy Multiple nodules size: <6 mm * low risk patients: no routine follow-up * high risk patients: optional CT at 12 months Multiple nodules size: 6-8 mm * low risk patients: follow-up at 3-6 months, then consider further follow-up at 18-24 months * high risk patients: follow-up at 3-6 months, then at 18-24 months if no change Multiple nodules size: >8 mm * low risk patients: follow-up at 3-6 months, then consider further follow-up at 18-24 months * high risk patients: follow-up at 3-6 months, then at 18-24 months if no change Note: newly detected indeterminate nodule in persons 35 years of age or older. * low risk patients: minimal or absent history of smoking and/or other known risk factors * high risk patients: history of smoking or of other known risk factors (e.g. first degree relative with lung cancer, or exposure to asbestos, radon, uranium) * if a nodule up to 8 mm is partly solid or is ground glass further follow-up is required after 24 months to exclude possible slow growing adenocarcinoma (HEVER) SUBSOLID NODULES Solitary pure ground-glass nodule * nodule size <6 mm - no CT follow-up required * nodule size >=6 mm - follow-up CT at 6-12 months, then every 2 years until 5 years Solitary part-solid nodule * nodule size <6 mm - no CT follow-up required * nodule size >=6 mm - follow-up CT at 3-6 months. If unchanged, and solid component remains <6 mm, then annual follow-up for 5 years Multiple subsolid nodules * nodule size <6 mm - follow-up CT at 3-6 months, consider further follow-up at 2 and 4 years if stable * nodule size >=6 mm - follow-up CT at 3-6 months, subsequent management based on the most suspicious nodule(s) Electronically signed by: Brenden Santos M.D. 03/15/2017 10:10 AM Dictated Date/Time: 03/15/2017 10:03 AM
== END | disposition home or self-care (01) ==
LOC: C.CTS 09:50
PROVIDERS: ATTEND Internal Medicine Pulmonary Disease
DX: R91.8 Other nonspecific abnormal finding of lung field (principal)

== ENCOUNTER 2017-05-27 16:11 | Emergency (ER) | payer MEDICARE, OTHER ==
[~2017-05-27] VITALS: Ht 154.9 cm; Wt 63.0 kg
[~2017-05-27 16:11] MED LIST changes: -OXYC-57 PO
[2017-05-27 16:16] VITALS: TEMP 36.5; Ht 154.9 cm; Wt 63.0 kg
[2017-05-27] MEDS ORDERED: VNTHFA/IN INH (16:40)
[2017-05-27] MEDS ORDERED: AMPH20TA2 PO (16:41)
--- NOTE | 2017-05-27 16:47 | EMERGENCY ROOM VISIT NOTE ---
History Report prepared by Stu: Miguelangel Aguilar Under the Supervision of: Dr. Danis Sierra D.O. First contact with patient: 16:22 Chief Complaint: KNEEPAIN Stated Complaint: FELL HURT LEFT KNEE History of Present Illness The patient is a 77 year old female who presents to the Emergency Room with complaints of left knee pain that occurred prior to arrival. The patient states she was visiting [facility] and slipped on water. She reports she fell onto her left side/knee. The patient notes she was able to stand up and ambulate afterwards, but she had difficulty secondary to pain in her left knee. She states she has a history of a left knee replacement. The patient denies neck pain, back pain, head pain, hitting head, and tingling and numbness to the leg. No chest or abdominal pain. She does not take any blood thinners. Source of History: patient Onset: prior to arrival Position: knee (left) Timing: constant Modifying Factors (Worsening): movement Associated Symptoms: No neck pain, No back pain, No numbness Note: Denies: hitting head, head pain, and tingling to the leg Review of Systems See HPI for pertinent positives & negatives. A total of 10 systems reviewed and were otherwise negative. 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, WITHOUT CATAPLEXY (11) OSTEOARTHROS NOS-UNSPEC (12) OSTEOPOROSIS NOS (13) Tonsillectomy (14) TOURETTE'S DISORDER Family History Cancer Social History Smoking Status: Former Smoker Alcohol Use: occasionally Drug Use: none Marital Status: Housing Status: lives with family Occupation Status: retired Current/Historical Medications Scheduled Albuterol Sulf (Proventil 0.083% 2.5MG/3ML), 2.5 MG INH QID Amlodipine (Norvasc), 2.5 MG PO QAM Amphetamine-Dextroamphetamine 20MG (Adderall 20MG), 10 MG PO BID Aspirin Enteric Coated (Ecotrin Or Generic), 81 MG PO QAM Atenolol (Tenormin), 25 MG PO QAM Calcium Carbonate-Vitamin D (Calcium 600-D), 1 TABLET PO DAILY Cetirizine (Zyrtec), 10 MG PO DAILY Cholecalciferol (Vitamin D3), 2,000 UNITS PO QAM Lisinopril (Zestril), 40 MG PO QAM Multivitamin (Multivitamin), 1 TABLET PO QAM Scheduled PRN Albuterol Hfa (Ventolin Hfa), 1-2 PUFFS INH Q4H PRN for SOB/Wheezing Allergies Coded Allergies: Sulfa Antibiotics (Verified Allergy, Mild, RASH, 05/27/17) Meclizine (Verified Adverse Reaction, Mild, DROWSY, 05/27/17) Physical Exam Vital Signs Date Time Temp Pulse Resp B/P (MAP) Pulse Ox O2 Delivery O2 Flow Rate FiO2 05/27/17 18:50 77 20 122/85 97 05/27/17 16:16 36.5 77 20 122/85 97 Room Air Physical Exam GENERAL: alert, well appearing, well nourished, no distress, non-toxic HEAD: normal cephalic, atraumatic EYE EXAM: normal conjunctiva OROPHARYNX: no exudate, no erythema, lips, buccal mucosa, and tongue normal and mucous membranes are moist NECK: supple, no nuchal rigidity, no adenopathy, non-tender CHEST: stable to compression anteriorly and posteriorly LUNGS: clear to auscultation. Normal chest wall mechanics HEART: no murmurs, S1 normal and S2 normal ABDOMEN: abdomen soft, non-tender, normo-active bowel sounds, no masses, no rebound or guarding. PELVIS: stable to compression anteriorly and posteriorly BACK: Back is symmetrical on inspection and there is no deformity, no midline tenderness. UPPER EXTREMITIES: full active and passive range of motion of all joints without tenderness to palpation LOWER EXTREMITIES: Tenderness to palpation of the left knee, old incision over the middle of the knee, DP and PT intact, gross sensation intact. Full active and passive range of motion of all joints without tenderness to palpation - with exception of the left knee. NEURO EXAM: Normal sensorium, GCS: 15. Medical Decision & Procedures ER Provider Diagnostic Interpretation: Radiology results as stated below per my review and the radiologist's interpretation: LEFT KNEE 3 VIEWS CLINICAL HISTORY: Fall with left knee pain. FINDINGS: AP, lateral, and sunrise views of left knee are compared to study dated 01/25/2017. The skeletal structures are osteopenic. No fracture is seen. A left knee arthroplasty is in near-anatomic alignment. There has been undersurface remodeling of the patella. No periprosthetic lucency is identified. There is a large joint effusion. A linear focus of low-attenuation within the joint effusion may represent lipohemarthrosis. Soft tissue swelling is present around the knee. IMPRESSION: 1. Soft tissue swelling and large joint effusion. No fracture is identified. 2. There is questionable lipohemarthrosis. If there is strong clinical concern for occult fracture consider short-term radiographic follow-up. 3. A left knee arthroplasty is in near-anatomic alignment. No periprosthetic lucency is seen. Electronically signed by: Shar Castro M.D. 05/27/2017 5:22 PM Dictated Date/Time: 05/27/2017 5:[address] SCAN OF THE LEFT KNEE WITHOUT IV CONTRAST CLINICAL HISTORY: Fall with left knee pain. COMPARISON STUDY: Radiographs of left knee dated 05/27/2017. TECHNIQUE: CT scan of the left knee is performed from the distal femur to the proximal tibia and fibula. Images are reviewed in the axial, sagittal, coronal planes. IV contrast was not administered for this examination. The examination is degraded by metallic streak artifact from the left knee arthroplasty. 3-D reformats are created and assessed. A dose lowering technique was utilized adhering to the principles of ALARA. CT DOSE: 265.61 mGy.cm FINDINGS: The skeletal structures are osteopenic. A left knee arthroplasty is in near anatomic alignment. There as been undersurface remodeling of the patella. No periprosthetic lucency is identified. There is a subtle nondistracted fracture seen involving the medial femoral condyle oriented in the AP plane. This is best seen on axial image #177, and fracture lucency extends to the medial aspect of the femoral component of the arthroplasty. No additional fracture is identified. There is lipohemarthrosis. Soft tissue swelling is present anterior to the knee. The regional musculature is atrophic. No intramuscular hematoma is identified. There is mild atherosclerotic calcification of the popliteal artery. IMPRESSION: 1. There is a nondistracted fracture through the medial femoral condyle as above which extends to the medial surface of the femoral component of the arthroplasty. 2. No additional fracture is seen. 3. Lipohemarthrosis and soft tissue swelling. Electronically signed by: Shar Castro M.D. 05/27/2017 6:00 PM Dictated Date/Time: 05/27/2017 5:55 PM ED Course ED COURSE: Vital signs were reviewed and showed normotensive. The patients medical record was reviewed The above diagnostic studies were performed and reviewed. ED treatments and interventions as stated above. 1629: The patient was evaluated in room D05. A complete history and physical examination was performed. 1735: I reevaluated the patient, and she is going for CT. 7: I discussed the patient's case with Dr. Freeman, Orthopedic Surgeon. He suggested non-weight bearing instructions, a knee immobilizer, and a follow up. 1829: Upon reevaluation, the patient is feeling better. She denied pain medication and crutches because she has them at home. I discussed my findings with the patient and she understands and agrees with the treatment plan. Based on the patients age, coexisting illnesses, exam and lab findings the decision to treat as an outpatient was made. The patient remained stable while under my care. The patient appeared well at the time of discharge. Medical Decision Differential diagnoses include major intracranial, cervical, spinal, thoracic, abdominal, pelvic and neurologic injury. Fracture, contusion, sprain, strain, laceration, abrasions included as well. Patient is a 77-year-old female who presents to ER for left knee pain following a fall earlier today. This was a mechanical fall. She has no other complaints. She was able to evaluate. She takes no blood thinners. Neurologically intact. No signs trauma. Patient had previous knee replacement. X-rays of knee show no acute fracture. With her significant pain CT was performed and shows a fracture through the medial condyle. Discussed with orthopedics. Pt will be NWB. She will use her crutches from home. She declined any pain medications. Family was updated bedside. She'll follow up with orthopedics early next week. She is placed in knee immobilizer with a bulky dressing. Discussed with Pt concerning signs and symptoms to watch out for. Pt was instructed to follow up with their PCP and discussed with the patient their option to return to the ED at anytime for persistent or worsening symptoms. The appropriate anticipatory guidance and out-patient management, including indications for return to the emergency department, were explained at length to the patient and understood. Head Trauma GCS Score: 15 Medication Reconcilliation Current Medication List: was personally reviewed by me Blood Pressure Screening Patient's blood pressure: Normal blood pressure Blood pressure disposition: Did not require urgent referral Consults Time Called: 1823 Consulting Physician: Dr. Freeman, Orthopedic Surgeon Returned Call: [phone] I discussed the patient's case with Dr. Freeman, Orthopedic Surgeon. He suggested non-weight bearing instructions, a knee immobilizer, and a follow up. Impression Primary Impression: Knee fracture, left Scribe Attestation The scribe's documentation has been prepared under my direction and personally reviewed by me in its entirety. I confirm that the note above accurately reflects all work, treatment, procedures, and medical decision making performed by me. Departure Information Dispostion Home / Self-Care Referrals Torrey Perez M.D. (PCP) Forms HOME CARE DOCUMENTATION FORM, IMPORTANT VISIT INFORMATION Patient Instructions My [facility] Additional Instructions Please follow up with orthopedics with in the next 24 hours. Any worsening of your symptoms, please return to the ED immediately. This includes any fevers greater than 100.4, worsening pain, headache, confusion, back pain, numbness or any other concerning signs or symptoms from your standpoint. Please take Motrin or Tylenol as needed for pain. Do not bear weight. Please call orthopedics Monday to be seen. Their numbers listed below. Please use your crutches at all times.
--- NOTE | 2017-05-27 17:23 | DIAGNOSTIC IMAGING REPORT ---
LEFT KNEE 3 VIEWS CLINICAL HISTORY: Fall with left knee pain. FINDINGS: AP, lateral, and sunrise views of left knee are compared to study dated 01/25/2017. The skeletal structures are osteopenic. No fracture is seen. A left knee arthroplasty is in near-anatomic alignment. There has been undersurface remodeling of the patella. No periprosthetic lucency is identified. There is a large joint effusion. A linear focus of low-attenuation within the joint effusion may represent lipohemarthrosis. Soft tissue swelling is present around the knee. IMPRESSION: 1. Soft tissue swelling and large joint effusion. No fracture is identified. 2. There is questionable lipohemarthrosis. If there is strong clinical concern for occult fracture consider short-term radiographic follow-up. 3. A left knee arthroplasty is in near-anatomic alignment. No periprosthetic lucency is seen. Electronically signed by: Shar Castro M.D. 05/27/2017 5:22 PM Dictated Date/Time: 05/27/2017 5:19 PM
--- NOTE | 2017-05-27 18:02 | DIAGNOSTIC IMAGING REPORT ---
CT SCAN OF THE LEFT KNEE WITHOUT IV CONTRAST CLINICAL HISTORY: Fall with left knee pain. COMPARISON STUDY: Radiographs of left knee dated 05/27/2017. TECHNIQUE: CT scan of the left knee is performed from the distal femur to the proximal tibia and fibula. Images are reviewed in the axial, sagittal, coronal planes. IV contrast was not administered for this examination. The examination is degraded by metallic streak artifact from the left knee arthroplasty. 3-D reformats are created and assessed. A dose lowering technique was utilized adhering to the principles of ALARA. CT DOSE: 265.61 mGy.cm FINDINGS: The skeletal structures are osteopenic. A left knee arthroplasty is in near anatomic alignment. There as been undersurface remodeling of the patella. No periprosthetic lucency is identified. There is a subtle nondistracted fracture seen involving the medial femoral condyle oriented in the AP plane. This is best seen on axial image #177, and fracture lucency extends to the medial aspect of the femoral component of the arthroplasty. No additional fracture is identified. There is lipohemarthrosis. Soft tissue swelling is present anterior to the knee. The regional musculature is atrophic. No intramuscular hematoma is identified. There is mild atherosclerotic calcification of the popliteal artery. IMPRESSION: 1. There is a nondistracted fracture through the medial femoral condyle as above which extends to the medial surface of the femoral component of the arthroplasty. 2. No additional fracture is seen. 3. Lipohemarthrosis and soft tissue swelling. Electronically signed by: Shar Castro M.D. 05/27/2017 6:00 PM Dictated Date/Time: 05/27/2017 5:55 PM
[2017-05-27 18:50] VITALS: BP 122/85; PULSE 77; O2SAT 97
== END 2017-05-27 18:50 | disposition home or self-care (01) ==
LOC: C.EDB 16:12 → C.EDD 18:50
DX: S72.435A Nondisplaced fracture of medial condyle of left femur, initial encounter for closed fracture (principal); W01.0XXA Fall on same level from slipping, tripping and stumbling without subsequent striking against object, initial encounter; Z96.652 Presence of left artificial knee joint; J45.909 Unspecified asthma, uncomplicated; F95.2 Tourette's disorder; I10 Essential (primary) hypertension; F90.9 Attention-deficit hyperactivity disorder, unspecified type; M81.0 Age-related osteoporosis without current pathological fracture; Z86.73 Personal history of transient ischemic attack (TIA), and cerebral infarction without residual deficits; Z87.891 Personal history of nicotine dependence; Z98.51 Tubal ligation status; Z98.49 Cataract extraction status, unspecified eye; Z90.89 Acquired absence of other organs; Z79.82 Long term (current) use of aspirin; Z79.899 Other long term (current) drug therapy

== ENCOUNTER → 2017-06-01 | Outpatient (CLI) | payer OTHER, MEDICARE ==
[~2017-06-01] MED LIST changes: -ALBUAER2 INH; -AMPH1TAB58 PO; +AMPH20TA2 PO; -LVNIS30 SQ; -OXYC-292 PO; -RXC5 PO; +VNTHFA/IN INH
[2017-06-01 12:48] LABS: ESTIMATED AVERAGE GLUCOSE 111 mg/dl; HA1C FLAG Normal (Normal)
[2017-06-01 12:52] LABS: BLOOD UREA NITROGEN 17 mg/dl (7-18); BUN/CREATININE RATIO 20.3 (10-20); CALCIUM 9.6 mg/dl (8.5-10.1); CARBON DIOXIDE 25 mmol/L (21-32); CHLORIDE 103 mmol/L (98-107); CREATININE 0.85 mg/dl (0.60-1.20); GLUCOSE 99 mg/dl (70-99); POTASSIUM 4.3 mmol/L (3.5-5.1); SODIUM 138 mmol/L (136-145)
[2017-06-01 12:54] LABS: CHOLESTEROL 243 mg/dl (0-200); CHOLESTEROL/HDL RATIO 2.9; HDL CHOLESTEROL 83 mg/dl; LDL CHOLESTEROL CALCULATED 138 mg/dl; TRIGLYCERIDES 108 mg/dl (0-150); VERY LOW DENSITY LIPOPROT CALC 22 mg/dl
== END | disposition home or self-care (01) ==
LOC: C.LABBFT 08:20
PROVIDERS: ATTEND Internal Medicine
DX: R73.03 Prediabetes (principal); E78.5 Hyperlipidemia, unspecified; I71.2 Thoracic aortic aneurysm, without rupture

== ENCOUNTER → 2017-06-19 | Outpatient (CLI) | payer OTHER, MEDICARE | END | disposition home or self-care (01) | LOC: C.RDSM 12:55 | PROVIDERS: ATTEND Physical Medicine & Rehabilitation Sports Medicine | DX: S80.02XA Contusion of left knee, initial encounter (principal); X58.XXXA Exposure to other specified factors, initial encounter ==

== ENCOUNTER → 2017-07-05 | Outpatient (CLI) | payer OTHER, MEDICARE | END | disposition home or self-care (01) | LOC: C.RDSM 14:00 | PROVIDERS: ATTEND Physical Medicine & Rehabilitation Sports Medicine | DX: M25.562 Pain in left knee (principal) ==

== ENCOUNTER → 2017-08-02 | Outpatient (CLI) | payer OTHER, MEDICARE ==
[~2017-08-02] MED LIST changes: +ASPI-319 PO; -ASPI81TA21 PO; +TMFS PO
== END | disposition home or self-care (01) ==
LOC: C.RDSM 10:58
PROVIDERS: ATTEND Physical Medicine & Rehabilitation Sports Medicine
DX: M25.562 Pain in left knee (principal)

== ENCOUNTER → 2017-09-08 | Outpatient (CLI) | payer OTHER, MEDICARE ==
[~2017-09-08] MED LIST changes: -ASPI-319 PO; +ASPI81TA21 PO; -TMFS PO
[2017-09-08 12:52] LABS: HEMOGLOBIN A1C 5.4 % (4.5-5.6)
[2017-09-08 12:54] LABS: ALT/SGPT 31 U/L (12-78); AST/SGOT 26 U/L (15-37); BLOOD UREA NITROGEN 27 mg/dl (7-18); CALCIUM 8.9 mg/dl (8.5-10.1); CARBON DIOXIDE 27 mmol/L (21-32); CREATININE 0.89 mg/dl (0.60-1.20); GLUCOSE 83 mg/dl (70-99); POTASSIUM 4.3 mmol/L (3.5-5.1); SODIUM 137 mmol/L (136-145)
[2017-09-08 12:57] LABS: CHOLESTEROL 249 mg/dl (0-200); LDL CHOLESTEROL CALCULATED 149 mg/dl
== END | disposition home or self-care (01) ==
LOC: C.LABBFT 08:22
PROVIDERS: ATTEND Internal Medicine
DX: R73.03 Prediabetes (principal); E78.5 Hyperlipidemia, unspecified

== ENCOUNTER 2017-11-02 10:24 | Emergency (ER) | payer OTHER, MEDICARE ==
[~2017-11-02] VITALS: Ht 156.2 cm; Wt 66.7 kg
[~2017-11-02 10:24] MED LIST changes: -AMPH20TA2 PO; -CALCTAB23 PO; -CHOL1000 PO; -LISI40TA PO; -MULT-506 PO; -VNTHFA/IN INH
[2017-11-02 10:33] VITALS: TEMP 36.8; Ht 156.2 cm; Wt 66.7 kg
[2017-11-02] MEDS ORDERED: SODIUM CHLORIDE 0.9% 1000ML 1,000 ML IV STA ×2 (10:47→12:46)
[2017-11-02] MEDS ORDERED: ALBUT/IPRATROP 3MG/0.5MG NEB 3 ML VIAL INH ONE (11:00)
[2017-11-02] MEDS ORDERED: SODIUM CHLORIDE 0.65% NA SOLN 45 ML (OCEAN) ONE (11:00)
[2017-11-02 11:14] VITALS: O2SAT 93
--- NOTE | 2017-11-02 11:21 | DIAGNOSTIC IMAGING REPORT ---
CHEST ONE VIEW PORTABLE CLINICAL HISTORY: Atypical chest pain, fever, chills. COMPARISON STUDY: 08/26/2016 FINDINGS: The cardiac and mediastinal contours are normal. There is no evidence of focal pulmonary consolidation. There is no evidence of failure. No pleural effusions are visualized.[ IMPRESSION: No active disease in the chest. Electronically signed by: Brenden Santos M.D. 11/02/2017 11:20 AM Dictated Date/Time: 11/02/2017 11:19 AM
[2017-11-02 11:30] LABS: BASO % 0.7 %; BASO ABS # 0.04 K/uL (0-0.2); EOS % 1.1 %; EOS ABS # 0.06 K/uL (0-0.5); HEMATOCRIT 43.8 % (37-47); HEMOGLOBIN 15.1 g/dL (12.0-16.0); IG# 0.01 K/uL (0.00-0.02); LYMPH % 20.3 %; LYMPH ABS # 1.09 K/uL (1.2-3.4); MEAN CORPUSCULAR HEMOGLOBIN 30.3 pg (25-34); MEAN CORPUSCULAR HGB CONC 34.5 g/dl (32-36); MEAN PLATELET VOLUME 9.5 fL (7.4-10.4); MONO % 12.3 %; MONO ABS # 0.66 K/uL (0.11-0.59); NEUT % 65.4 %; NEUT ABS # 3.51 K/uL (1.4-6.5); PLATELET COUNT 222 K/uL (130-400); RED CELL DISTRIBUTION WIDTH CV 13.1 % (11.5-14.5); RED CELL DISTRIBUTION WIDTH SD 41.8 fL (36.4-46.3); WHITE BLOOD COUNT 5.37 K/uL (4.8-10.8)
[2017-11-02 11:37] VITALS: PULSE 84; O2SAT 98
[2017-11-02] MEDS ORDERED: MULT-506 PO (11:41)
[2017-11-02] MEDS ORDERED: LISI40TA PO (11:41)
[2017-11-02 11:47] LABS: ALBUMIN 4.2 gm/dl (3.4-5.0); ALKALINE PHOSPHATASE 99 U/L (45-117); ALT/SGPT 30 U/L (12-78); AST/SGOT 25 U/L (15-37); BLOOD UREA NITROGEN 25 mg/dl (7-18); CALCIUM 9.7 mg/dl (8.5-10.1); CARBON DIOXIDE 21 mmol/L (21-32); CREATININE 1.73 mg/dl (0.60-1.20); GLUCOSE 101 mg/dl (70-99); LIPASE 133 U/L (73-393); POTASSIUM 4.1 mmol/L (3.5-5.1); SODIUM 134 mmol/L (136-145); TOTAL PROTEIN 8.7 gm/dl (6.4-8.2)
[2017-11-02 12:16] LABS: INFLUENZA A PCR Neg for Influ A (NEG)
[2017-11-02 12:17] LABS: INFLUENZA B PCR POS for Influ B (NEG)
[2017-11-02] MEDS ORDERED: OSELTAMIVIR PHOSPHATE SUSP 30 MG/5 ML UDP PO SCH (12:46)
[2017-11-02] MEDS ORDERED: OSELTAMIVIR PHOSPHATE 75 MG CAP PO STA (12:46)
[2017-11-02] MEDS ORDERED: NURSING VERBAL MED ORDER ONE (13:15)
[2017-11-02] MEDS ORDERED: TMFS PO (13:47)
--- NOTE | 2017-11-02 13:50 | EMERGENCY ROOM VISIT NOTE ---
History Report prepared by Stu: Parker Palomares Under the Supervision of: Dr. Benson Bishop M.D. First contact with patient: 10:44 Chief Complaint: FEVER Stated Complaint: FEVER, CHILLS, BEEN SICK SINCE MONDAY History of Present Illness The patient is a 77 year old female who presents to the Emergency Room with complaints of persistent generalized illness beginning four days ago. Her symptoms include fevers, chills, shortness of breath, productive cough, diarrhea , and nausea. The patient's fever peaked at 101 degrees today. She has a history of pneumonia, and feels that she likely has pneumonia. She has a history of asthma, COPD, and pneumonitis. The patient is not on any blood thinners. She denies any urinary symptoms. She states that she has had a runny nose, but no significant nasal congestion. The patient is a former smoker. Source of History: patient Onset: Four days ago Position: other (generalized) Quality: other (illness) Timing: other (persistent) Associated Symptoms: + fevers (101 degrees), + chills, + cough (productive) , + nausea, + diarrhea, No urinary symptoms Review of Systems See HPI for pertinent positives and negatives. A total of ten systems were reviewed and were otherwise negative. 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, WITHOUT CATAPLEXY (11) OSTEOARTHROS NOS-UNSPEC (12) OSTEOPOROSIS NOS (13) Tonsillectomy (14) TOURETTE'S DISORDER Family History Cancer Social History Smoking Status: Former Smoker Alcohol Use: occasionally Drug Use: none Marital Status: Housing Status: lives with family Occupation Status: retired Current/Historical Medications Scheduled Albuterol Sulf (Proventil 0.083% 2.5MG/3ML), 2.5 MG INH QID Amlodipine (Norvasc), 2.5 MG PO QAM Amphetamine-Dextroamphetamine 20MG (Adderall 20MG), 10 MG PO BID Aspirin Enteric Coated (Ecotrin Or Generic), 81 MG PO QAM Atenolol (Tenormin), 25 MG PO QAM Calcium Carbonate-Vitamin D (Calcium 600-D), 1 TABLET PO DAILY Cetirizine (Zyrtec), 10 MG PO DAILY Cholecalciferol (Vitamin D3), 2,000 UNITS PO QAM Lisinopril (Zestril), 40 MG PO QAM Multivitamin (Multivitamin), 1 TABLET PO QAM Oseltamivir Phosphate (Tamiflu), 5 ML PO DAILY Scheduled PRN Albuterol Hfa (Ventolin Hfa), 1-2 PUFFS INH Q4H PRN for SOB/Wheezing Allergies Coded Allergies: Sulfa Antibiotics (Verified Allergy, Mild, RASH, 11/02/17) Meclizine (Verified Adverse Reaction, Mild, DROWSY, 11/02/17) Physical Exam Vital Signs Date Time Temp Pulse Resp B/P (MAP) Pulse Ox O2 Delivery O2 Flow Rate FiO2 11/02/17 14:43 100 24 127/84 96 11/02/17 13:31 130/84 11/02/17 13:30 104 21 94 Room Air 11/02/17 13:01 121/83 11/02/17 13:00 108 21 90 Room Air 11/02/17 12:33 105 18 115/81 98 Room Air 11/02/17 12:01 117/82 11/02/17 12:00 91 18 100 Nebulizer 11/02/17 11:37 84 16 98 Room Air 11/02/17 11:31 123/92 11/02/17 11:30 90 22 100 Nebulizer 11/02/17 11:25 88 11/02/17 11:14 93 Room Air 11/02/17 11:14 87 16 112/87 93 Room Air 11/02/17 10:33 36.8 103 18 112/78 95 Room Air Physical Exam GENERAL: Awake, alert, fatigued-appearing, in no distress HENT: Normocephalic, atraumatic. Oropharynx unremarkable other than dry mucous membranes. EYES: Normal conjunctiva. Sclera non-icteric. NECK: Supple. No nuchal rigidity. FROM. No JVD. RESPIRATORY: Scant intermittent wheeze. CARDIAC: Regular rate, normal rhythm. Extremities warm and well perfused. Pulses equal. ABDOMEN: Soft, non-distended. No tenderness to palpation. No rebound or guarding. No masses. RECTAL: Deferred. MUSCULOSKELETAL: Chest examination reveals no tenderness. The back is symmetrical on inspection without obvious abnormality. There is no CVA tenderness to palpation. No joint edema. LOWER EXTREMITIES: Calves are equal size bilaterally and non-tender. No edema. No discoloration. NEURO: Normal sensorium. No sensory or motor deficits noted. SKIN: No rash or jaundice noted. Medical Decision & Procedures ER Provider Diagnostic Interpretation: Radiology results as stated below per my review and radiologist interpretation: CHEST ONE VIEW PORTABLE FINDINGS: The cardiac and mediastinal contours are normal. There is no evidence of focal pulmonary consolidation. There is no evidence of failure. No pleural effusions are visualized.[ IMPRESSION: No active disease in the chest. Electronically signed by: Brenden Santos M.D. 11/02/2017 11:20 AM Laboratory Results 11/02/17 11:12 Red Blood Count 4.98, Mean Corpuscular Volume 88.0, Mean Corpuscular Hemoglobin 30.3, Mean Corpuscular Hemoglobin Concent 34.5, Mean Platelet Volume 9.5, Neutrophils (%) (Auto) 65.4, Lymphocytes (%) (Auto) 20.3, Monocytes (%) (Auto) 12.3, Eosinophils (%) (Auto) 1.1, Basophils (%) (Auto) 0.7, Neutrophils # (Auto ) 3.51, Lymphocytes # (Auto) 1.09, Monocytes # (Auto) 0.66, Eosinophils # (Auto ) 0.06, Basophils # (Auto) 0.04 11/02/17 11:12 Test 11/02/17 11:12 11/02/17 11:15 White Blood Count 5.37 K/uL (4.8-10.8) Red Blood Count 4.98 M/uL (4.2-5.4) Hemoglobin 15.1 g/dL (12.0-16.0) Hematocrit 43.8 % (37-47) Mean Corpuscular Volume 88.0 fL (80-100) Mean Corpuscular Hemoglobin 30.3 pg (25-34) Mean Corpuscular Hemoglobin Concent 34.5 g/dl (32-36) Platelet Count 222 K/uL (130-400) Mean Platelet Volume 9.5 fL (7.4-10.4) Neutrophils (%) (Auto) 65.4 % Lymphocytes (%) (Auto) 20.3 % Monocytes (%) (Auto) 12.3 % Eosinophils (%) (Auto) 1.1 % Basophils (%) (Auto) 0.7 % Neutrophils # (Auto) 3.51 K/uL (1.4-6.5) Lymphocytes # (Auto) 1.09 K/uL (1.2-3.4) Monocytes # (Auto) 0.66 K/uL (0.11-0.59) Eosinophils # (Auto) 0.06 K/uL (0-0.5) Basophils # (Auto) 0.04 K/uL (0-0.2) RDW Standard Deviation 41.8 fL (36.4-46.3) RDW Coefficient of Variation 13.1 % (11.5-14.5) Immature Granulocyte % (Auto) 0.2 % Immature Granulocyte # (Auto) 0.01 K/uL (0.00-0.02) Anion Gap 11.0 mmol/L (3-11) Est Creatinine Clear Calc Drug Dose 24.5 ml/min Estimated GFR () 32.7 Estimated GFR (Non- 28.2 BUN/Creatinine Ratio 14.4 (10-20) Calcium Level 9.7 mg/dl (8.5-10.1) Magnesium Level 2.1 mg/dl (1.8-2.4) Total Bilirubin 0.5 mg/dl (0.2-1) Direct Bilirubin 0.1 mg/dl (0-0.2) Aspartate Amino Transf (AST/SGOT) 25 U/L (15-37) Alanine Aminotransferase (ALT/SGPT) 30 U/L (12-78) Alkaline Phosphatase 99 U/L (45-117) Troponin I < 0.015 ng/ml (0-0.045) Pro-B-Type Natriuretic Peptide 520 pg/ml (0-1800) Total Protein 8.7 gm/dl (6.4-8.2) Albumin 4.2 gm/dl (3.4-5.0) Lipase 133 U/L (73-393) Influenza Type A (RT-PCR) Neg for Influ A (NEG) Influenza Type B (RT-PCR) POS for Influ B (NEG) Laboratory results reviewed by me Medications Administered Medications (Trade) Dose Ordered Sig/Dominique Route Start Time Stop Time Status Last Admin Dose Admin Sodium Chloride 1,000 ml @ 999 mls/hr Q1H1M STAT IV 11/02/17 10:47 11/02/17 11:47 DC 11/02/17 11:19 999 MLS/HR Albuterol/ Ipratropium (Duoneb) 12 ml ONE ONCE INH 11/02/17 11:00 11/02/17 11:01 DC 11/02/17 11:00 12 ML Sodium Chloride ([place] Nasal [place]) 2 sprays NOW ONCE NA 11/02/17 11:00 11/02/17 11:01 DC 11/02/17 11:18 2 SPRAYS Sodium Chloride 1,000 ml @ 999 mls/hr Q1H1M STAT IV 11/02/17 12:46 11/02/17 13:46 DC 11/02/17 13:32 999 MLS/HR Oseltamivir Phosphate (Tamiflu Susp) 30 mg 1246 PO 11/02/17 12:46 11/02/17 14:00 DC 11/02/17 13:41 30 MG ECG Per My Interpretation Indication: SOB/dyspnea Rate (beats per minute): 90 Rhythm: normal sinus Findings: other (Normal axis. No ST elevation. ) ED Course 1046: The patient was evaluated in room C3. A complete history and physical exam was performed. 1355: I reevaluated the patient. Discussed results and discharge instructions: she verbalized understanding and agreement. The patient is ready for discharge. Medical Decision I reviewed the patient's past medical history, medications, and the nursing notes as described above. Differential diagnosis: Etiologies such as infections, reactive airway disease, pneumonia, pneumothorax , COPD, CHF, cardiac ischemia, pulmonary embolism, musculoskeletal, gastrointestinal, as well as others were entertained. The patient is a 77-year-old woman with a past medical history of COPD/asthma who presents emergency department with cough congestion and body aches over the past week per hpi. On arrival, the patient is in no acute distress, afebrile with stable vital signs. EKG unremarkable. Chest x-ray negative for pneumonia. Labs with WBC within normal limits. Otherwise patient has an AK I with a creatinine of 1.7, which is up from within normal limits in August and system with the patient's clinically dry status. Patient is influenza B positive. Thus will treat with Tamiflu given the prevalence and virulence of the flu this year in the community. Patient feeling improved after IV fluid hydration and neb. I did offer the patient oral steroids however she is reluctant to to begin this concerned she may develop "diabetes". I did emphasize that this may help her symptoms however she still declined. Findings and plan for follow-up reviewed with patient. Patient agreeable and d/c'd per discharge instructions. Medication Reconcilliation Current Medication List: was personally reviewed by me Blood Pressure Screening Patient's blood pressure: Normal blood pressure Blood pressure disposition: Did not require urgent referral Impression Primary Impression: Influenza B Additional Impression: Acute kidney injury Scribe Attestation The scribe's documentation has been prepared under my direction and personally reviewed by me in its entirety. I confirm that the note above accurately reflects all work, treatment, procedures, and medical decision making performed by me. Departure Information Dispostion Home / Self-Care Prescriptions Oseltamivir Phosphate (Tamiflu) 6 Mg/Ml Susp 5 ML PO DAILY for 4 Days, #20 ML Prov: Benson Bishop M.D. 11/02/17 Referrals Torrey Perez M.D. (PCP) Patient Instructions ED Dehydration, ED Flu, ED Insufficiency Renal, My [facility] Additional Instructions Please follow up with your primary care physician in the next 1-3 days for re- evaluation and to repeat your kidney function test, which was impaired today, likely due to dehydration. You were found to have the flu (influenza B) as well as mild dehydration. Otherwise, your exam, EKG, chest xray, and lab results did not show signs of an emergent condition at this time. Acetaminophen for pain and fevers as needed. Use her albuterol inhaler 2 puffs or nebulizer every 4 hours as needed for cough , wheezing, and congestion. Tamiflu as directed. Drink plenty of fluids to ensure hydration. Return to the emergency department for worsening symptoms as described in the accompanying instructions. Problem Qualifiers
[2017-11-02 14:43] VITALS: BP 127/84; PULSE 100; O2SAT 96
[2017-11-02] MEDS ORDERED: VNTHFA/IN INH (16:40)
[2017-11-02] MEDS ORDERED: AMPH20TA2 PO (16:41)
[2017-11-02] MEDS ORDERED: CHOL1000 PO (17:49)
[2017-11-02] MEDS ORDERED: CALCTAB23 PO (21:02)
== END 2017-11-02 14:40 | disposition home or self-care (01) ==
LOC: C.EDB 10:26 → C.EDC 14:40
DX: J10.1 Influenza due to other identified influenza virus with other respiratory manifestations (principal); N17.9 Acute kidney failure, unspecified; J45.909 Unspecified asthma, uncomplicated; F90.9 Attention-deficit hyperactivity disorder, unspecified type; E78.5 Hyperlipidemia, unspecified; I10 Essential (primary) hypertension; E03.9 Hypothyroidism, unspecified; M19.90 Unspecified osteoarthritis, unspecified site; M85.80 Other specified disorders of bone density and structure, unspecified site; F95.2 Tourette's disorder; Z87.891 Personal history of nicotine dependence; Z79.82 Long term (current) use of aspirin; Z88.2 Allergy status to sulfonamides; Z88.8 Allergy status to other drugs, medicaments and biological substances

== ENCOUNTER → 2018-03-19 | Outpatient (CLI) | payer OTHER, MEDICARE ==
[~2018-03-19] MED LIST changes: +AMPH20TA2 PO; +ASPI-319 PO; -ASPI81TA21 PO; +CALCTAB23 PO; +CHOL1000 PO; +LISI40TA PO; +MULT-506 PO; +TMFS PO; +VNTHFA/IN INH
[2018-03-19 12:42] LABS: HEMOGLOBIN A1C 5.7 % (4.5-5.6)
[2018-03-19 12:53] LABS: ALT/SGPT 27 U/L (12-78); AST/SGOT 24 U/L (15-37); BLOOD UREA NITROGEN 22 mg/dl (7-18); CALCIUM 9.2 mg/dl (8.5-10.1); CARBON DIOXIDE 26 mmol/L (21-32); CHOLESTEROL 202 mg/dl (0-200); CREATININE 1.11 mg/dl (0.60-1.20); GLUCOSE 96 mg/dl (70-99); LDL CHOLESTEROL CALCULATED 113 mg/dl; POTASSIUM 4.4 mmol/L (3.5-5.1); SODIUM 134 mmol/L (136-145)
== END | disposition home or self-care (01) ==
LOC: C.LABBFT 07:51
PROVIDERS: ATTEND Internal Medicine
DX: R73.03 Prediabetes (principal); E78.5 Hyperlipidemia, unspecified

== ENCOUNTER → 2018-04-09 | Outpatient (CLI) | payer OTHER, MEDICARE | END | disposition home or self-care (01) | LOC: C.RDSM 10:50 | PROVIDERS: ATTEND Physical Medicine & Rehabilitation Sports Medicine | DX: M25.562 Pain in left knee (principal) ==